=== PATIENT | male | born 1970 | race Caucasian/White ===

== ENCOUNTER → 2016-04-22 | Outpatient (CLI) | payer OTHER ==
[~2016-04-22] MED LIST: CLONIDINE0.1 MG PO; COLACE100 MG PO; HYDR12.5C PO; HYDRODIURIL25 MG PO; LISINOPRIL-HYDR1 TA1 PO; LISINOPRIL20 MG PO; MAGNESIUM400 M1 PO; METOPROLOL50 MG PO; MIRALAX17 GM PO; OMEPRAZOLE D/R20 MG PO; OXYCODONE HCL5 MG PO; OXYCODONE5 M1 PO; PLACEBO #001 EACH PO; TOPROL XL25 MG PO; TYLENOL325 M2 PO; [UNRECOGNIZED DRUG - OTHER] PO
[2016-04-22 12:04] LABS: HEMATOCRIT 34.2 % (42.0-52.0); HEMOGLOBIN 11.4 g/dl (14.0-18.0); MEAN CELL VOLUME 85.9 fl (80.0-94.0); MEAN CORPUSCULAR HGB 28.6 pg (27.0-31.0); MEAN CORPUSCULAR HGB CONC 33.3 g/dl (33.0-37.0); MEAN PLATELET VOLUME 10.3 fl (9.6-12.3); RED BLOOD COUNT 3.98 10*6/uL (4.50-5.90); RED CELL DISTRI WIDTH 13.2 % (0-14.5); WHITE BLOOD COUNT 8.8 10*3/uL (4.8-10.8)
[2016-04-22 12:30] LABS: CHOLESTEROL 215 mg/dL (<200); HDL CHOLESTEROL 41 mg/dl (40-60); LDL CHOLESTEROL 113 mg/dL (9-159); TRIGLYCERIDES 303 mg/dl (<150); VLDL CHOLESTEROL 61 mg/dL (6-40)
[2016-04-22 12:31] LABS: ALBUMIN 3.4 gm/dl (3.1-4.5); ALKALINE PHOSPHATASE 90 U/L (45-117); BILIRUBIN, TOTAL 0.2 mg/dl (0.2-1.0); BUN 19 mg/dl (7-24); CARBON DIOXIDE 26 mmol/L (21-32); CHLORIDE 104 mmol/L (98-107); EST GLOM FILT AFRICAN AMERICAN > 60 ml/min; GLUCOSE 105 mg/dL (65-99); SGOT/AST 18 IU/L (3-35); SGPT/ALT 31 U/L (12-78); SODIUM 139 mmol/L (136-145); TOTAL PROTEIN 7.4 gm/dL (6.4-8.2)
== END | disposition home or self-care (01) ==
LOC: LAB 11:40
PROVIDERS: Family Medicine
DX: I10 Essential (primary) hypertension (principal); E78.00 Pure hypercholesterolemia, unspecified; E55.9 Vitamin D deficiency, unspecified; R10.9 Unspecified abdominal pain; K21.9 Gastro-esophageal reflux disease without esophagitis

== ENCOUNTER 2016-05-04 12:25 | Emergency (ER) | payer OTHER ==
[~2016-05-04] VITALS: Ht 175.2 cm; Wt 104.3 kg
[2016-05-04 13:08] LABS: BASO % 0.5 % (0.0-1.0); EOS # 0.2 10*3/uL (0.0-0.4); EOS % 2.7 % (1.0-4.0); HEMATOCRIT 37.2 % (42.0-52.0); HEMOGLOBIN 12.3 g/dl (14.0-18.0); LYMPH # 2.6 10*3/uL (1.3-4.4); LYMPH % 30.5 % (27.0-41.0); MEAN CELL VOLUME 85.9 fl (80.0-94.0); MEAN CORPUSCULAR HGB 28.4 pg (27.0-31.0); MEAN CORPUSCULAR HGB CONC 33.1 g/dl (33.0-37.0); MEAN PLATELET VOLUME 10.7 fl (9.6-12.3); MONO # 0.7 10*3/uL (0.1-1.0); NEUT % 57.8 % (47.0-73.0); PLATELET COUNT AUTOMATED 274 10*3/uL (130-400); RED BLOOD COUNT 4.33 10*6/uL (4.50-5.90); WHITE BLOOD COUNT 8.6 10*3/uL (4.8-10.8)
[2016-05-04 13:27] LABS: ALBUMIN 3.6 gm/dl (3.1-4.5); ALKALINE PHOSPHATASE 95 U/L (45-117); BILIRUBIN, TOTAL 0.2 mg/dl (0.2-1.0); BUN 17 mg/dl (7-24); CARBON DIOXIDE 26 mmol/L (21-32); CHLORIDE 103 mmol/L (98-107); EST GLOM FILT AFRICAN AMERICAN > 60 ml/min; GLUCOSE 83 mg/dL (65-99); POTASSIUM 4.3 mmol/L (3.5-5.1); SGOT/AST 21 IU/L (3-35); SGPT/ALT 36 U/L (12-78); SODIUM 138 mmol/L (136-145); TOTAL PROTEIN 7.7 gm/dL (6.4-8.2)
[2016-05-04 16:11] LABS: BILIRUBIN NEGATIVE (NEGATIVE); BLOOD NEGATIVE (NEGATIVE); CLARITY CLEAR (CLEAR); COLOR YELLOW (YELLOW); GLUCOSE NEGATIVE (NEGATIVE); KETONE NEGATIVE (NEGATIVE); LEUKO ESTERASE NEGATIVE (NEGATIVE); NITRITE NEGATIVE (NEGATIVE); PROTEIN NEGATIVE (NEGATIVE); SPECIFIC GRAVITY <= 1.005 (1.005-1.030); UROBILINOGEN 0.2 E.U./dl (0.2-1.0)
[2016-05-04 16:24] LABS: URINE REFLEX COMMENT NO (NO); WBC 0-2 wbc/hpf (0-5)
== END 2016-05-04 16:16 | disposition home or self-care (01) ==
LOC: ED 12:25
PROVIDERS: Emergency Medicine
DX: K43.6 Other and unspecified ventral hernia with obstruction, without gangrene (principal); N18.9 Chronic kidney disease, unspecified; I99.8 Other disorder of circulatory system; I10 Essential (primary) hypertension; F17.200 Nicotine dependence, unspecified, uncomplicated; Z88.8 Allergy status to other drugs, medicaments and biological substances; Z79.899 Other long term (current) drug therapy; Z90.5 Acquired absence of kidney

== ENCOUNTER → 2017-05-07 | Outpatient (CLI) | payer OTHER ==
[2017-05-07 11:22] LABS: HEMATOCRIT 39.4 % (42.0-52.0); HEMOGLOBIN 13.5 g/dl (14.0-18.0); MEAN CELL VOLUME 79.6 fl (80.0-94.0); MEAN CORPUSCULAR HGB 27.3 pg (27.0-31.0); MEAN CORPUSCULAR HGB CONC 34.3 g/dl (33.0-37.0); MEAN PLATELET VOLUME 10.7 fl (9.6-12.3); RED BLOOD COUNT 4.95 10*6/uL (4.50-5.90); RED CELL DISTRI WIDTH 13.2 % (0-14.5); WHITE BLOOD COUNT 9.3 10*3/uL (4.8-10.8)
[2017-05-07 11:51] LABS: ALBUMIN 3.7 gm/dl (3.1-4.5); CREATININE 2.02 mg/dL (0.70-1.30); POTASSIUM 3.9 mmol/L (3.5-5.1)
== END | disposition home or self-care (01) ==
LOC: LAB 10:39
PROVIDERS: Family Medicine
DX: Z12.5 Encounter for screening for malignant neoplasm of prostate (principal); I10 Essential (primary) hypertension; E78.00 Pure hypercholesterolemia, unspecified; E55.9 Vitamin D deficiency, unspecified

== ENCOUNTER → 2017-07-04 | Outpatient (CLI) | payer OTHER ==
[2017-07-04 09:38] LABS: BASO % 0.3 % (0.0-1.0); EOS # 0.2 10*3/uL (0.0-0.4); EOS % 2.2 % (1.0-4.0); HEMATOCRIT 41.3 % (42.0-52.0); HEMOGLOBIN 13.5 g/dl (14.0-18.0); LYMPH # 2.3 10*3/uL (1.3-4.4); LYMPH % 26.6 % (27.0-41.0); MEAN CELL VOLUME 81.8 fl (80.0-94.0); MEAN CORPUSCULAR HGB 26.7 pg (27.0-31.0); MEAN CORPUSCULAR HGB CONC 32.7 g/dl (33.0-37.0); MEAN PLATELET VOLUME 10.1 fl (9.6-12.3); MONO # 0.7 10*3/uL (0.1-1.0); MONO % 7.7 % (3.0-9.0); NEUT # 5.5 10*3/uL (2.3-7.9); NEUT % 62.6 % (47.0-73.0); PLATELET COUNT AUTOMATED 266 10*3/uL (130-400); RED BLOOD COUNT 5.05 10*6/uL (4.50-5.90); RED CELL DISTRI WIDTH 13.7 % (0-14.5); WHITE BLOOD COUNT 8.7 10*3/uL (4.8-10.8)
[2017-07-04 10:00] LABS: ALBUMIN 3.7 gm/dl (3.1-4.5); CREATININE 1.58 mg/dL (0.70-1.30); FREE T4 0.63 ng/dl (0.76-1.46); POTASSIUM 3.8 mmol/L (3.5-5.1); TOTAL PROTEIN 7.5 gm/dL (6.4-8.2)
[2017-07-04 10:05] LABS: THYROID STIM HORMONE (HS) 1.71 uIU/ml (0.358-4.75)
== END | disposition home or self-care (01) ==
LOC: LAB 08:52
PROVIDERS: Family Medicine
DX: J44.9 Chronic obstructive pulmonary disease, unspecified (principal); E55.9 Vitamin D deficiency, unspecified; I10 Essential (primary) hypertension

== ENCOUNTER 2017-09-15 15:42 | Inpatient (IN) | payer OTHER ==
[~2017-09-15] VITALS: Ht 175.2 cm; Wt 125.4 kg
--- NOTE | ~2017-09-15 | PROC NOTE ---
[place], [place] PROCEDURE NOTE NAME: TITI ROMAN UNIT #: [id number] ROOM: 524 DOCTOR: UTE PAZ MD,JOVANNY BIRTHDATE: [birth year] DOS: 09/21/2017 BRONCHOSCOPY NOTE PREOPERATIVE DIAGNOSIS: Severe nonresolving cough with suspected mucous impaction, major airway. POSTOPERATIVE DIAGNOSES: Severe nonresolving cough with suspected mucous impaction, major airway. PROCEDURE DESCRIPTION: Informed consent obtained for the patient. The patient brought to the OR and placed in supine position. Conscious sedation administered by the Anesthesia Department. After achieving proper sedation, airway introduced into the mouth. The bronchoscope advanced to the airway into laryngeal area. Epiglottis and vocal cord seen, which was moving symmetrically with movements. Bronchoscope advanced to vocal cord. Tracheal lumen shows moderate thick mucus secretion suctioned out to the bertha level, and appeared to be clear mucus. Bertha noted sharp. Right upper, right middle, right lower, left upper, lingular lobe bronchi all examined and moderate amount of mucus impaction noted mainly in the lower lobe of endobronchial tree subsegment, which were clear with help of normal saline wash, sent for culture. Bronchial washing taken out of the endobronchial subsegments as well. Postoperative finding will be discussed with the patient once the patient recovers the effects of acute sedation. JOVANNY UNGER MD CM:PROCNOTE:PROCEDURE NOTE [id number] JOVANNY PAZ MD
--- NOTE | ~2017-09-15 | EKG ---
[place], [place] ELECTROCARDIOGRAM REPORT NAME: TITI ROMAN UNIT #: [id number] ROOM: 524 DOCTOR: UTE PAZ MD,JOVANNY BIRTHDATE: [birth year] DOS: 09/20/2017 TIME: 9:52 a.m. EKG shows normal sinus rhythm. Heart rate 80 beats per minute. Poor R-wave progression of the patient suggested possibility of anterior myocardial wall infarction for the patient could be old. JOVANNY UNGER MD CM:EKGRPT:ELECTROCARDIOGRAM REPORT [id number] JOVANNY PAZ MD
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
--- NOTE | ~2017-09-15 | PR ---
[place], [place] PROGRESS NOTE NAME: TITI ROMAN UNIT #: [id number] ROOM: 524 DOCTOR: JOVANNY BENNETT MD BIRTHDATE: [birth year] DOS: 09/21/2017 SUBJECTIVE: The patient was noted n.p.o. past midnight for bronchoscopy, still noted moderate severe nonproductive cough and chest congestion. Denies symptoms of coughing. Denies symptoms of rather wheezing or chest pain. Denies symptoms of acute shortness of breath at rest. Denies symptoms of postnasal drainage or headache. Denies symptoms of nausea, vomiting, diarrhea, palpitations. Denies any dysuria, suprapubic pain. Remaining systems were reviewed, they were noted all negative. OBJECTIVE: VITAL SIGNS: For the patient which were recorded showed the temperature noted normal, respiratory rate 20, heart rate 77, blood pressure of 142/92-140/84. Pulse oxygen saturation on room air was 95% saturation. HEENT: Moderate obesity. NECK: Supple. CARDIOVASCULAR: S1, S2 audible. LUNGS: Noted without any wheezing or crackles at the present time. Breaths are noted mild to moderate decreased bilaterally. ABDOMEN: Soft, obese, nontender. EXTREMITIES: The patient noted without any acute edema. LABORATORY DATA: ___ level in the last several hours both noted as normal. No other labs were done. These labs were taken on 09/16/2017. IMPRESSION: 1. The patient has been noted with ongoing acute severe bronchitis at this time with history of nicotine dependence with suspected mucous impaction of major airways here for bronchoscopy. 2. Moderate obesity. 3. Essential hypertension. PLAN OF MANAGEMENT: Proceed with bronchoscopy as planned. Continuation of bronchodilators as previously using the flutter valve and the corticosteroids. Further change in the treatment will be made based on progression of the illness and after bronchoscopy as necessary. [place], [place] PROGRESS NOTE NAME: TITI ROMAN Roseanne UNIT #: [id number] ROOM: 524 DOCTOR: JOVANNY BENNETT MD BIRTHDATE: [birth year] JOVANNY UNGER MD CM:PNTRANS [id number] JOVANNY PAZ MD 09/21/17 1312 interface
--- NOTE | ~2017-09-15 | PR ---
[place], [place] PROGRESS NOTE [id number] UN[facility] #: [id number] ROOM: 524 DOCTOR: UTE PAZ MD,JOVANNY BIRTHDATE: [birth year] DOS: 09/22/2017 SUBJECTIVE: The patient has been noted comfortable at this time without any acute distress. He has not been noted any symptoms of chest pain or hemoptysis. Coughing has been noted markedly decreased after the bronchoscopy yesterday. There was no wheezing reported by the patient. OBJECTIVE: VITAL SIGNS: Normal temperature, respiratory rate 18, ____, blood pressure 129/84. Pulse oxygen saturation of the patient room air 93% saturation. HEENT: Examination shows head was atraumatic. Eye nonicterus. NECK: Supple. CARDIOVASCULAR: S1, S2 audible. LUNGS: Clear to auscultation bilaterally. ABDOMEN: Soft, nontender. EXTREMITIES: No acute edema. LABORATORY DATA: Culture of the sputum for the patient, the patient was noted normal kendra. The Gram stain of the patient, moderate white blood cells, moderate gram-positive cocci in pairs and clusters. Culture ____ normal kendra. IMPRESSION: The patient has been noted currently stable. The patient at this time with improvement in symptoms of coughing, tracheobronchitis with mucous impaction. PLAN OF TREATMENT: No changes in the plan of care, patient at this time. Continue the patient's current plan of care and therapy. Usual care, other supportive plan of management and treatments. JOVANNY UNGER MD CM:PNTRANS [id number] JOVANNY PAZ MD 09/22/17 1120 interface
[2017-09-15 15:43] VITALS: BP 200/132
[2017-09-15 16:05] VITALS: BP 198/100
[2017-09-15 16:06] LABS: BASO % 0.3 % (0.0-1.0); EOS # 0.2 10*3/uL (0.0-0.4); EOS % 2.3 % (1.0-4.0); HEMATOCRIT 47.5 % (42.0-52.0); LYMPH # 2.8 10*3/uL (1.3-4.4); LYMPH % 27.6 % (27.0-41.0); MEAN CELL VOLUME 81.5 fl (80.0-94.0); MEAN CORPUSCULAR HGB 27.4 pg (27.0-31.0); MEAN CORPUSCULAR HGB CONC 33.7 g/dl (33.0-37.0); MEAN PLATELET VOLUME 10.2 fl (9.6-12.3); MONO # 0.7 10*3/uL (0.1-1.0); MONO % 6.5 % (3.0-9.0); NEUT # 6.3 10*3/uL (2.3-7.9); PLATELET COUNT AUTOMATED 275 10*3/uL (130-400); RED BLOOD COUNT 5.83 10*6/uL (4.50-5.90); RED CELL DISTRI WIDTH 13.9 % (0-14.5)
[2017-09-15 16:16] LABS: ACT PARTIAL THROMBO TIME 26.7 SECONDS (20.8-31.5)
[2017-09-15 16:22] LABS: ALBUMIN 3.9 gm/dl (3.1-4.5); ALKALINE PHOSPHATASE 89 U/L (45-117); BUN 14 mg/dl (7-24); CHLORIDE 104 mmol/L (98-107); CREATININE 1.43 mg/dL (0.70-1.30); LIPASE 204 U/L (73-393); POTASSIUM 3.7 mmol/L (3.5-5.1); SGOT/AST 17 IU/L (3-35); SGPT/ALT 22 U/L (12-78); SODIUM 140 mmol/L (136-145); TOTAL PROTEIN 8.3 gm/dL (6.4-8.2)
[2017-09-15 16:23] LABS: TROPONIN I < 0.015 ng/ml (<0.045)
[2017-09-15 17:17] VITALS: BP 166/106
[2017-09-15 18:06] VITALS: BP 176/116
[2017-09-15] MEDS ORDERED: VALIUM5 MG PO (18:06)
[2017-09-15] MEDS ORDERED: Meclizine25 MG PO (18:14)
[2017-09-15] MEDS ORDERED: ANAFRANIL50 M1 PO (18:14)
[2017-09-15] MEDS ORDERED: PROZAC40 M1 PO (18:15)
[2017-09-15] MEDS ORDERED: ZYPREXA20 M1 PO (18:15)
[2017-09-15] MEDS ORDERED: VISTARIL25 MG PO (18:15)
[2017-09-15] MEDS ORDERED: VITAMIN D5000 UNIT PO (18:16)
[2017-09-15] MEDS ORDERED: CLARITIN10 MG PO (18:16)
[2017-09-15 20:00] VITALS: BP 169/112
[2017-09-16] VITALS: BP 148/90
[2017-09-16 06:36] LABS: BASO % 0.3 % (0.0-1.0); EOS # 0.3 10*3/uL (0.0-0.4); EOS % 2.4 % (1.0-4.0); HEMATOCRIT 44.3 % (42.0-52.0); HEMOGLOBIN 14.6 g/dl (14.0-18.0); LYMPH # 2.7 10*3/uL (1.3-4.4); LYMPH % 25.5 % (27.0-41.0); MEAN CELL VOLUME 81.6 fl (80.0-94.0); MEAN CORPUSCULAR HGB 26.9 pg (27.0-31.0); MONO # 0.9 10*3/uL (0.1-1.0); NEUT # 6.7 10*3/uL (2.3-7.9); NEUT % 63.4 % (47.0-73.0); PLATELET COUNT AUTOMATED 243 10*3/uL (130-400); RED BLOOD COUNT 5.43 10*6/uL (4.50-5.90); RED CELL DISTRI WIDTH 13.8 % (0-14.5); WHITE BLOOD COUNT 10.6 10*3/uL (4.8-10.8)
[2017-09-16 06:42] LABS: ACT PARTIAL THROMBO TIME 27.5 SECONDS (20.8-31.5)
[2017-09-16 06:58] LABS: ALBUMIN 3.5 gm/dl (3.1-4.5); BUN 15 mg/dl (7-24); CHLORIDE 104 mmol/L (98-107); POTASSIUM 3.9 mmol/L (3.5-5.1); SODIUM 138 mmol/L (136-145)
[2017-09-16 07:09] LABS: ALKALINE PHOSPHATASE 80 U/L (45-117); CHOLESTEROL 204 mg/dL (<200); CREATININE 1.32 mg/dL (0.70-1.30); HDL CHOLESTEROL 37 mg/dl (40-60); LDL CHOLESTEROL 130 mg/dL (9-159); PHOSPHOROUS 3.6 mg/dL (2.5-4.9); SGOT/AST 15 IU/L (3-35); SGPT/ALT 20 U/L (12-78); TOTAL PROTEIN 7.2 gm/dL (6.4-8.2); TRIGLYCERIDES 186 mg/dl (<150); VLDL CHOLESTEROL 37 mg/dL (6-40)
[2017-09-16 07:29] LABS: VITAMIN D, 25-HYDROXY 25.5 ng/mL (30-100)
[2017-09-16 08:00] VITALS: BP 137/97
[2017-09-16 12:00] VITALS: BP 140/84
[2017-09-16 16:00] VITALS: BP 138/91
[2017-09-16 20:00] VITALS: BP 125/85
[2017-09-17] VITALS: BP 116/71
[2017-09-17 06:41] LABS: ALBUMIN 3.5 gm/dl (3.1-4.5); BUN 20 mg/dl (7-24); CHLORIDE 104 mmol/L (98-107); CREATININE 1.39 mg/dL (0.70-1.30); PHOSPHOROUS 3.4 mg/dL (2.5-4.9); POTASSIUM 4.1 mmol/L (3.5-5.1); SODIUM 139 mmol/L (136-145)
[2017-09-17 08:00] VITALS: BP 125/87
[2017-09-17 11:58] LABS: BILIRUBIN NEGATIVE (NEGATIVE); BLOOD NEGATIVE (NEGATIVE); CLARITY CLEAR (CLEAR); COLOR YELLOW (YELLOW); GLUCOSE NEGATIVE (NEGATIVE); KETONE NEGATIVE (NEGATIVE); LEUKO ESTERASE NEGATIVE (NEGATIVE); NITRITE NEGATIVE (NEGATIVE); PH 5.5 (5.0-9.0); SPECIFIC GRAVITY <= 1.005 (1.005-1.030); UROBILINOGEN 0.2 E.U./dl (0.2-1.0)
[2017-09-17 12:00] VITALS: BP 119/82
[2017-09-17 12:22] LABS: EPITHELIAL CELLS 0-2; WBC 0-2 wbc/hpf (0-5)
[2017-09-17 16:00] VITALS: BP 136/75
[2017-09-17 20:00] VITALS: BP 116/74
[2017-09-18] VITALS: BP 127/78
[2017-09-18 06:38] LABS: BASO % 0.1 % (0.0-1.0); HEMATOCRIT 44.7 % (42.0-52.0); HEMOGLOBIN 14.6 g/dl (14.0-18.0); LYMPH # 1.3 10*3/uL (1.3-4.4); LYMPH % 7.8 % (27.0-41.0); MEAN CELL VOLUME 83.4 fl (80.0-94.0); MEAN CORPUSCULAR HGB 27.2 pg (27.0-31.0); MEAN CORPUSCULAR HGB CONC 32.7 g/dl (33.0-37.0); MEAN PLATELET VOLUME 10.7 fl (9.6-12.3); MONO # 0.2 10*3/uL (0.1-1.0); MONO % 1.5 % (3.0-9.0); NEUT # 14.6 10*3/uL (2.3-7.9); PLATELET COUNT AUTOMATED 265 10*3/uL (130-400); RED BLOOD COUNT 5.36 10*6/uL (4.50-5.90); RED CELL DISTRI WIDTH 14.3 % (0-14.5); WHITE BLOOD COUNT 16.2 10*3/uL (4.8-10.8)
[2017-09-18 07:06] LABS: CREATININE 1.6 mg/dL (0.70-1.30)
[2017-09-18 08:00] VITALS: BP 124/79
[2017-09-18 12:00] VITALS: BP 122/77
[2017-09-18 16:00] VITALS: BP 129/83
[2017-09-18 20:00] VITALS: BP 126/73
[2017-09-19 00:16] VITALS: BP 138/83
[2017-09-19 08:00] VITALS: BP 128/80
[2017-09-19 12:00] VITALS: BP 151/87
[2017-09-19 16:00] VITALS: BP 133/82
[2017-09-19 20:00] VITALS: BP 128/77
[2017-09-20] VITALS: BP 132/89
[2017-09-20 07:26] LABS: BASO % 0.1 % (0.0-1.0); HEMATOCRIT 43.3 % (42.0-52.0); LYMPH # 1.1 10*3/uL (1.3-4.4); LYMPH % 7.3 % (27.0-41.0); MEAN CELL VOLUME 83.6 fl (80.0-94.0); MEAN CORPUSCULAR HGB CONC 32.3 g/dl (33.0-37.0); MEAN PLATELET VOLUME 10.9 fl (9.6-12.3); MONO # 0.6 10*3/uL (0.1-1.0); MONO % 3.7 % (3.0-9.0); NEUT # 13.6 10*3/uL (2.3-7.9); NEUT % 88.2 % (47.0-73.0); PLATELET COUNT AUTOMATED 264 10*3/uL (130-400); RED BLOOD COUNT 5.18 10*6/uL (4.50-5.90); RED CELL DISTRI WIDTH 14.6 % (0-14.5); WHITE BLOOD COUNT 15.4 10*3/uL (4.8-10.8)
[2017-09-20 07:54] LABS: BUN 29 mg/dl (7-24); CHLORIDE 102 mmol/L (98-107); CREATININE 1.39 mg/dL (0.70-1.30); POTASSIUM 4.1 mmol/L (3.5-5.1); SODIUM 139 mmol/L (136-145)
[2017-09-20 08:00] VITALS: BP 122/79
[2017-09-20 12:00] VITALS: BP 135/65
[2017-09-20 16:00] VITALS: BP 143/78
[2017-09-20 20:00] VITALS: BP 143/82
[2017-09-21] VITALS (9 sets, daily range): BP systolic 130–169; BP diastolic 79–107
[2017-09-22] VITALS: BP 129/74
[2017-09-22 08:00] VITALS: BP 129/84
[2017-09-22] MEDS ORDERED: LEVAQUIN750 M1 PO (09:16)
[2017-09-22] MEDS ORDERED: ATORVASTATIN CA20 M1 PO (09:16)
[2017-09-22] MEDS ORDERED: PREDNISONE10 MG PO (09:16)
[2017-09-22 12:00] VITALS: BP 122/76
[2017-09-22 15:08] LABS: ACID FAST SPEC PROCESSING Concentration (.)
[2017-09-23 19:06] LABS: METANEPHRINE, PLASMA <10 pg/mL (0-62); NORMETANEPHRINE, PLASMA 11 pg/mL (0-145)
[2017-11-02 12:06] LABS: ACID FAST CULTURE Negative (.)
== END 2017-09-22 13:51 | disposition home or self-care (01) | DRG 190 ==
LOC: ED 15:42 → 5E 17:44 → EDHOLD 17:44 → 5E 17:51
PROVIDERS: Family Medicine; Internal Medicine; Internal Medicine Critical Care Medicine; Internal Medicine Nephrology; Nurse Practitioner Family
PROC: 0BC98ZZ Extirpation of Matter from Lingula Bronchus, Via Natural or Artificial Opening Endoscopic (ICD-10-PCS; principal; 2017-09-21)
PROC: 0BC48ZZ Extirpation of Matter from Right Upper Lobe Bronchus, Via Natural or Artificial Opening Endoscopic (ICD-10-PCS; 2017-09-21)
PROC: 0BC88ZZ Extirpation of Matter from Left Upper Lobe Bronchus, Via Natural or Artificial Opening Endoscopic (ICD-10-PCS; 2017-09-21)
PROC: 0BC58ZZ Extirpation of Matter from Right Middle Lobe Bronchus, Via Natural or Artificial Opening Endoscopic (ICD-10-PCS; 2017-09-21)
PROC: 0BC38ZZ Extirpation of Matter from Right Main Bronchus, Via Natural or Artificial Opening Endoscopic (ICD-10-PCS; 2017-09-21)
PROC: 0BC78ZZ Extirpation of Matter from Left Main Bronchus, Via Natural or Artificial Opening Endoscopic (ICD-10-PCS; 2017-09-21)
PROC: 0BC68ZZ Extirpation of Matter from Right Lower Lobe Bronchus, Via Natural or Artificial Opening Endoscopic (ICD-10-PCS; 2017-09-21)
PROC: 0BCB8ZZ Extirpation of Matter from Left Lower Lobe Bronchus, Via Natural or Artificial Opening Endoscopic (ICD-10-PCS; 2017-09-21)
PROC: 0BC18ZZ Extirpation of Matter from Trachea, Via Natural or Artificial Opening Endoscopic (ICD-10-PCS; 2017-09-21)
DX: J44.1 Chronic obstructive pulmonary disease with (acute) exacerbation (principal); J18.9 Pneumonia, unspecified organism; T17.590A Other foreign object in bronchus causing asphyxiation, initial encounter; T17.490A Other foreign object in trachea causing asphyxiation, initial encounter; I13.0 Hypertensive heart and chronic kidney disease with heart failure and stage 1 through stage 4 chronic kidney disease, or unspecified chronic kidney disease; R65.10 Systemic inflammatory response syndrome (SIRS) of non-infectious origin without acute organ dysfunction; I50.32 Chronic diastolic (congestive) heart failure; E66.01 Morbid (severe) obesity due to excess calories; F33.9 Major depressive disorder, recurrent, unspecified; I16.1 Hypertensive emergency; J44.0 Chronic obstructive pulmonary disease with (acute) lower respiratory infection; J30.2 Other seasonal allergic rhinitis; N18.3 Chronic kidney disease, stage 3 (moderate); E55.9 Vitamin D deficiency, unspecified; E78.5 Hyperlipidemia, unspecified; K43.9 Ventral hernia without obstruction or gangrene; F43.10 Post-traumatic stress disorder, unspecified; F41.1 Generalized anxiety disorder; D72.810 Lymphocytopenia; F17.210 Nicotine dependence, cigarettes, uncomplicated; J20.9 Acute bronchitis, unspecified; X58.XXXA Exposure to other specified factors, initial encounter; Y93.89 Activity, other specified; Z90.5 Acquired absence of kidney; Z88.8 Allergy status to other drugs, medicaments and biological substances; Z79.899 Other long term (current) drug therapy; Y92.89 Other specified places as the place of occurrence of the external cause; Y99.8 Other external cause status; Z68.39 Body mass index [BMI] 39.0-39.9, adult

== ENCOUNTER 2018-05-23 17:12 | Inpatient (IN) | payer OTHER ==
[~2018-05-23] VITALS: Ht 175.3 cm; Wt 134.5 kg
--- NOTE | ~2018-05-23 | EKG ---
[place], [place] ELECTROCARDIOGRAM REPORT NAME: TITI ROMAN UNIT #: [id number] ROOM: 532 DOCTOR: MYRANDA DRAFT REPORT BIRTHDATE: [birth year] [facility] Test Date: 2018-05-23 Test Time: 23:35:57 Pat Name: TITI ROMAN Department: Room: 532 1 Gender: M Air Shovel Operator: Nini Bueno : 1970 Requested By: RAMIRO WILKERSON Order Number: [id number] Reading MD: Titi Miller MD Measurements Intervals [place] Rate: 97 P: 57 NM: 103 QRS: -73 QRSD: 101 T: 70 QT: 458 QTc: 582 Interpretive Statements Sinus rhythm Short NM interval Probable left atrial enlargement Left anterior fascicular block Abnormal R-wave progression, late transition Prolonged QT interval or TU fusion Compared to ECG 05/23/2018 21:39:53 No significant change Electronically Signed On 05-24-2018 17:27:14 PST by Titi Miller MD CM:EKGRPT:ELECTROCARDIOGRAM REPORT [id number] RAMIRO COX DRAFT REPORT RAMIRO WILKERSON DO
--- NOTE | ~2018-05-23 | EKG ---
[place], [place] ELECTROCARDIOGRAM REPORT NAME: DANIELE ROMAN UNIT #: [id number] ROOM: 532 DOCTOR: MYRANDA DRAFT REPORT BIRTHDATE: [birth year] [facility] Test Date: 2018-05-23 Test Time: 18:16:54 Pat Name: DANIELE ROMAN Department: Room: 532 Gender: M Clerical Manager: : 1970 Requested By: ROBYN VILLEDA Order Number: [id number] Reading MD: Daniele Miller MD Measurements Intervals [place] Rate: 101 P: 59 TX: 140 QRS: -61 QRSD: 98 T: 64 QT: 314 QTc: 407 Interpretive Statements Sinus tachycardia Left atrial enlargement Left anterior fascicular block Abnormal R-wave progression, late transition Compared to ECG 12/08/2017 16:34:26 Sinus rhythm no longer present Electronically Signed On 05-25-2018 9:29:39 PST by Daniele Miller MD CM:EKGRPT:ELECTROCARDIOGRAM REPORT [id number] ROBYN VILLEDA EPIPHANY DRAFT REPORT ROBYN VILLEDA
--- NOTE | ~2018-05-23 | EKG ---
[place], [place] ELECTROCARDIOGRAM REPORT NAME: TITI ROMAN UNIT #: [id number] ROOM: 532 DOCTOR: MYRANDA DRAFT REPORT BIRTHDATE: [birth year] [facility] Test Date: 2018-05-23 Test Time: 21:39:53 Pat Name: TITI ROMAN Department: 5E Room: 532 1 Gender: M Scallop Cutter: Nini Bueno : 1970 Requested By: RAMIRO WILKERSON Order Number: [id number] Reading MD: Titi Miller MD Measurements Intervals [place] Rate: 95 P: 68 TX: 144 QRS: -61 QRSD: 89 T: 59 QT: 452 QTc: 569 Interpretive Statements Sinus rhythm Probable left atrial enlargement Left anterior fascicular block Abnormal R-wave progression, late transition ST elev, probable normal early repol pattern Prolonged QT interval Compared to ECG 12/08/2017 16:34:26 ST (T wave) deviation now present Prolonged QT interval now present Electronically Signed On 05-23-2018 19:36:50 PST by Titi Miller MD CM:EKGRPT:ELECTROCARDIOGRAM REPORT [id number] RAMIRO COX DRAFT REPORT RAMIRO WILKERSON DO
[~2018-05-23 17:12] MED LIST changes: +ANAFRANIL50 M1 PO; +ATORVASTATIN CA20 M1 PO; +CLARITIN10 MG PO; +LEVAQUIN750 M1 PO; +Meclizine25 MG PO; +PREDNISONE10 MG PO; +PROZAC40 M1 PO; +VALIUM5 MG PO; +VISTARIL25 MG PO; +VITAMIN D5000 UNIT PO; +ZYPREXA20 M1 PO
[2018-05-23 17:42] LABS: BASO % 0.3 % (0.0-1.0); EOS # 0.2 10*3/uL (0.0-0.4); EOS % 1.4 % (1.0-4.0); HEMATOCRIT 46.9 % (42.0-52.0); HEMOGLOBIN 16.4 g/dl (14.0-18.0); LYMPH # 2.8 10*3/uL (1.3-4.4); LYMPH % 25.1 % (27.0-41.0); MEAN CELL VOLUME 77.5 fl (80.0-94.0); MEAN CORPUSCULAR HGB 27.1 pg (27.0-31.0); MEAN PLATELET VOLUME 9.9 fl (9.6-12.3); MONO # 0.7 10*3/uL (0.1-1.0); MONO % 6.5 % (3.0-9.0); NEUT # 7.3 10*3/uL (2.3-7.9); NEUT % 66.2 % (47.0-73.0); PLATELET COUNT AUTOMATED 309 10*3/uL (130-400); RED BLOOD COUNT 6.05 10*6/uL (4.50-5.90); RED CELL DISTRI WIDTH 12.9 % (0-14.5)
[2018-05-23 17:59] LABS: ALBUMIN 3.8 gm/dl (3.1-4.5); CREATININE 1.53 mg/dL (0.70-1.30); POTASSIUM 3.6 mmol/L (3.5-5.1)
[2018-05-23 18:06] LABS: TROPONIN I 0.046 ng/ml (<0.045)
[2018-05-23 21:20] VITALS: BP 158/98
[2018-05-23] MEDS ORDERED: ZYPREXA20 M1 PO (21:53)
[2018-05-23] MEDS ORDERED: 'CLONIDINE0.1 MG PO (21:54)
[2018-05-23] MEDS ORDERED: FLUOXETINE HCL40 MG PO (21:58)
[2018-05-24] VITALS: BP 158/98
[2018-05-24 04:00] VITALS: BP 131/84
[2018-05-24 06:28] LABS: BASO % 0.3 % (0.0-1.0); EOS # 0.2 10*3/uL (0.0-0.4); EOS % 2.2 % (1.0-4.0); HEMATOCRIT 42.6 % (42.0-52.0); HEMOGLOBIN 14.9 g/dl (14.0-18.0); LYMPH # 2.8 10*3/uL (1.3-4.4); LYMPH % 26.6 % (27.0-41.0); MEAN CELL VOLUME 78.3 fl (80.0-94.0); MEAN CORPUSCULAR HGB 27.4 pg (27.0-31.0); MEAN PLATELET VOLUME 10.3 fl (9.6-12.3); MONO # 0.9 10*3/uL (0.1-1.0); MONO % 8.2 % (3.0-9.0); NEUT # 6.4 10*3/uL (2.3-7.9); NEUT % 62.1 % (47.0-73.0); PLATELET COUNT AUTOMATED 272 10*3/uL (130-400); RED BLOOD COUNT 5.44 10*6/uL (4.50-5.90); RED CELL DISTRI WIDTH 13.1 % (0-14.5); WHITE BLOOD COUNT 10.4 10*3/uL (4.8-10.8)
[2018-05-24 06:43] LABS: ALBUMIN 3.1 gm/dl (3.1-4.5); BUN 20 mg/dl (7-24); CHLORIDE 102 mmol/L (98-107); CHOLESTEROL 177 mg/dL (<200); CREATININE 1.24 mg/dL (0.70-1.30); FREE T4 0.95 ng/dl (0.76-1.46); PHOSPHOROUS 2.9 mg/dL (2.5-4.9); POTASSIUM 3.4 mmol/L (3.5-5.1); SGOT/AST 33 IU/L (3-35); SGPT/ALT 60 U/L (12-78); SODIUM 138 mmol/L (136-145); TOTAL PROTEIN 6.7 gm/dL (6.4-8.2); TRIGLYCERIDES 573 mg/dl (<150)
[2018-05-24 06:48] LABS: ALKALINE PHOSPHATASE 130 U/L (45-117); HDL CHOLESTEROL 27 mg/dl (40-60)
[2018-05-24 08:00] VITALS: BP 141/84
[2018-05-24 12:00] VITALS: BP 101/58
[2018-05-24 14:03] LABS: BILIRUBIN NEGATIVE (NEGATIVE); BLOOD NEGATIVE (NEGATIVE); CLARITY CLEAR (CLEAR); COLOR YELLOW (YELLOW); GLUCOSE 3+ (NEGATIVE); KETONE NEGATIVE (NEGATIVE); LEUKO ESTERASE NEGATIVE (NEGATIVE); NITRITE NEGATIVE (NEGATIVE); SPECIFIC GRAVITY <= 1.005 (1.005-1.030); UROBILINOGEN 0.2 E.U./dl (0.2-1.0)
[2018-05-24 14:20] LABS: EPITHELIAL CELLS 0-2; WBC 0-2 wbc/hpf (0-5)
[2018-05-24 14:21] LABS: BACTERIA TRACE
[2018-05-24 16:00] VITALS: BP 156/95
[2018-05-24 20:00] VITALS: BP 147/86
[2018-05-25] VITALS: BP 134/92
[2018-05-25 07:21] LABS: ALBUMIN 3.1 gm/dl (3.1-4.5); ALKALINE PHOSPHATASE 129 U/L (45-117); BUN 17 mg/dl (7-24); CHLORIDE 103 mmol/L (98-107); CREATININE 1.11 mg/dL (0.70-1.30); POTASSIUM 3.4 mmol/L (3.5-5.1); SGOT/AST 49 IU/L (3-35); SGPT/ALT 64 U/L (12-78); SODIUM 135 mmol/L (136-145); TOTAL PROTEIN 6.6 gm/dL (6.4-8.2)
[2018-05-25 08:00] VITALS: BP 136/82
[2018-05-25 12:00] VITALS: BP 146/86
[2018-05-25 16:00] VITALS: BP 138/88
[2018-05-25] MEDS ORDERED: LANTUS SOL100 UNIT/1 SC (17:44)
[2018-05-25] MEDS ORDERED: ZITHROMAX250 MG PO (17:44)
[2018-05-25] MEDS ORDERED: LIPITOR20 MG PO (17:44)
[2018-05-25] MEDS ORDERED: TRAD5TAB1 PO (17:44)
[2018-08-05] MEDS ORDERED: ADMELOG100 UNIT/1 SQ (22:02)
[2018-08-05] MEDS ORDERED: BASAG SOL SQ (22:03)
[2018-08-09] MEDS ORDERED: DOXYCYCLINE100 M3 PO (10:20)
[2018-08-09] MEDS ORDERED: PREDNISONE10 MG PO (10:20)
== END 2018-05-25 18:25 | disposition home or self-care (01) | DRG 640 ==
LOC: ED 17:12 → 5E 19:29 → EDHOLD 19:29 → 5E 20:12
PROVIDERS: Family Medicine; Nurse Practitioner Family; Student in an Organized Health Care Education/Training Program; ADMIT Internal Medicine
DX: R73.9 Hyperglycemia, unspecified (principal); N17.0 Acute kidney failure with tubular necrosis; I13.0 Hypertensive heart and chronic kidney disease with heart failure and stage 1 through stage 4 chronic kidney disease, or unspecified chronic kidney disease; I50.32 Chronic diastolic (congestive) heart failure; E87.1 Hypo-osmolality and hyponatremia; K46.0 Unspecified abdominal hernia with obstruction, without gangrene; N18.3 Chronic kidney disease, stage 3 (moderate); F32.9 Major depressive disorder, single episode, unspecified; E66.01 Morbid (severe) obesity due to excess calories; E87.8 Other disorders of electrolyte and fluid balance, not elsewhere classified; R74.8 Abnormal levels of other serum enzymes; F41.1 Generalized anxiety disorder; E78.5 Hyperlipidemia, unspecified; F43.10 Post-traumatic stress disorder, unspecified; F17.210 Nicotine dependence, cigarettes, uncomplicated; R74.0 Nonspecific elevation of levels of transaminase and lactic acid dehydrogenase [LDH]; E55.9 Vitamin D deficiency, unspecified; E87.6 Hypokalemia; J20.9 Acute bronchitis, unspecified; Z71.6 Tobacco abuse counseling; Z88.8 Allergy status to other drugs, medicaments and biological substances; Z79.899 Other long term (current) drug therapy; Z90.5 Acquired absence of kidney

== ENCOUNTER → 2018-09-29 | Outpatient (CLI) | payer OTHER ==
[~2018-09-29] MED LIST changes: +'CLONIDINE0.1 MG PO; +ADMELOG100 UNIT/1 SQ; +BASAG SOL SQ; +DOXYCYCLINE100 M3 PO; +FLUOXETINE HCL40 MG PO; +LANTUS SOL100 UNIT/1 SC; +LIPITOR20 MG PO; +TRAD5TAB1 PO; +ZITHROMAX250 MG PO
== END | disposition home or self-care (01) ==
LOC: CT 09-28 13:00
DX: K43.9 Ventral hernia without obstruction or gangrene (principal); K44.9 Diaphragmatic hernia without obstruction or gangrene; R19.07 Generalized intra-abdominal and pelvic swelling, mass and lump

== ENCOUNTER 2018-12-19 14:23 | Emergency (ER) | payer OTHER ==
[~2018-12-19] VITALS: Ht 175.2 cm; Wt 138.3 kg
--- NOTE | ~2018-12-19 | EKG ---
[place], [place] ELECTROCARDIOGRAM REPORT NAME: TITI ROMAN UNIT #: [id number] ROOM: DOCTOR: EPIPHANY DRAFT REPORT BIRTHDATE: [birth year] [facility] Test Date: 2018-12-19 Test Time: 14:52:28 Pat Name: TITI ROMAN Department: Room: Gender: Network Manager: Christiana Meyers : 1970 Requested By: NEVIN MOYER DNP Order Number: [id number] Reading MD: Tahmina Briones MD Measurements Intervals [place] Rate: 84 P: 47 VT: 157 QRS: -36 QRSD: 105 T: 67 QT: 414 QTc: 490 Interpretive Statements Sinus rhythm Left axis deviation Consider anterior infarct Compared to ECG 08/05/2018 18:44:30 Left-axis deviation now present Myocardial infarct finding still present Electronically Signed On 12-21-2018 8:04:16 PDT by Tahmina Briones MD CM:EKGRPT:ELECTROCARDIOGRAM REPORT [id number] NEVIN MOYER DNP EPIPHANY DRAFT REPORT NEVIN MOYER DNP
[2018-12-19 15:03] LABS: BASO # 0.1 10*3/uL (0.0-0.1); BASO % 0.4 % (0.0-1.0); EOS # 0.3 10*3/uL (0.0-0.4); EOS % 2.4 % (1.0-4.0); HEMATOCRIT 43.9 % (42.0-52.0); HEMOGLOBIN 15.1 g/dl (14.0-18.0); LYMPH % 26.9 % (27.0-41.0); MEAN CELL VOLUME 81.4 fl (80.0-94.0); MEAN CORPUSCULAR HGB CONC 34.4 g/dl (33.0-37.0); MONO # 0.8 10*3/uL (0.1-1.0); MONO % 6.7 % (3.0-9.0); NEUT % 63.2 % (47.0-73.0); PLATELET COUNT AUTOMATED 252 10*3/uL (130-400); RED BLOOD COUNT 5.39 10*6/uL (4.50-5.90); WHITE BLOOD COUNT 11.1 10*3/uL (4.8-10.8)
[2018-12-19 15:13] LABS: ACT PARTIAL THROMBO TIME 30.4 SECONDS (20.0-32.1); INTERNATIONAL NORM RATIO 0.9 (2.0-3.5)
[2018-12-19 15:20] LABS: ALBUMIN 3.8 gm/dl (3.1-4.5); ALKALINE PHOSPHATASE 100 U/L (45-117); BUN 16 mg/dl (7-24); CHLORIDE 101 mmol/L (98-107); CREATININE 1.42 mg/dL (0.70-1.30); LIPASE 276 U/L (73-393); POTASSIUM 3.7 mmol/L (3.5-5.1); SGOT/AST 24 IU/L (3-35); SGPT/ALT 42 U/L (12-78); SODIUM 136 mmol/L (136-145); TOTAL PROTEIN 7.5 gm/dL (6.4-8.2); TROPONIN I 0.027 ng/ml (<0.045)
== END 2018-12-19 15:49 | disposition home or self-care (01) ==
LOC: ED 14:23
PROVIDERS: Nurse Practitioner Family
DX: I10 Essential (primary) hypertension (principal); F17.210 Nicotine dependence, cigarettes, uncomplicated; Z88.8 Allergy status to other drugs, medicaments and biological substances; Z79.899 Other long term (current) drug therapy; Z79.2 Long term (current) use of antibiotics

== ENCOUNTER 2019-01-06 17:03 | Emergency (ER) | payer OTHER ==
[~2019-01-06] VITALS: Ht 175.2 cm; Wt 104.3 kg
[2019-01-06 17:42] LABS: BASO # 0.1 10*3/uL (0.0-0.1); BASO % 0.6 % (0.0-1.0); EOS # 0.2 10*3/uL (0.0-0.4); EOS % 2.3 % (1.0-4.0); HEMATOCRIT 43.5 % (42.0-52.0); HEMOGLOBIN 15.1 g/dl (14.0-18.0); LYMPH # 2.3 10*3/uL (1.3-4.4); LYMPH % 26.1 % (27.0-41.0); MEAN CELL VOLUME 81.2 fl (80.0-94.0); MEAN CORPUSCULAR HGB 28.2 pg (27.0-31.0); MEAN CORPUSCULAR HGB CONC 34.7 g/dl (33.0-37.0); MEAN PLATELET VOLUME 10.1 fl (9.6-12.3); MONO # 0.8 10*3/uL (0.1-1.0); MONO % 8.7 % (3.0-9.0); NEUT # 5.5 10*3/uL (2.3-7.9); NEUT % 61.6 % (47.0-73.0); PLATELET COUNT AUTOMATED 210 10*3/uL (130-400); RED BLOOD COUNT 5.36 10*6/uL (4.50-5.90); RED CELL DISTRI WIDTH 13.2 % (0-14.5); WHITE BLOOD COUNT 8.8 10*3/uL (4.8-10.8)
[2019-01-06 17:58] LABS: ALBUMIN 3.5 gm/dl (3.1-4.5); CREATININE 1.52 mg/dL (0.70-1.30); TOTAL PROTEIN 7.1 gm/dL (6.4-8.2)
[2019-01-06 18:18] LABS: BILIRUBIN NEGATIVE (NEGATIVE); BLOOD NEGATIVE (NEGATIVE); CLARITY CLEAR (CLEAR); COLOR YELLOW (YELLOW); GLUCOSE 3+ (NEGATIVE); KETONE NEGATIVE (NEGATIVE); LEUKO ESTERASE NEGATIVE (NEGATIVE); NITRITE NEGATIVE (NEGATIVE); UROBILINOGEN 0.2 E.U./dl (0.2-1.0)
[2019-01-06 18:23] LABS: BACTERIA 1+; RBC 0-2 rbc/hpf (0-2)
== END 2019-01-06 20:17 | disposition home or self-care (01) ==
LOC: ED 17:03
PROVIDERS: Physician Assistant
DX: E11.65 Type 2 diabetes mellitus with hyperglycemia (principal); F17.210 Nicotine dependence, cigarettes, uncomplicated; Z98.890 Other specified postprocedural states; Z90.89 Acquired absence of other organs; Z79.4 Long term (current) use of insulin; Z79.899 Other long term (current) drug therapy; Z88.8 Allergy status to other drugs, medicaments and biological substances

== ENCOUNTER 2019-02-22 16:57 | Inpatient (IN) | payer MEDICARE ==
[~2019-02-22] VITALS: Ht 175.2 cm; Wt 116.6 kg
--- NOTE | ~2019-02-22 | EKG ---
[place], [place] ELECTROCARDIOGRAM REPORT NAME: TITI ROMAN UNIT #: [id number] ROOM: 504 DOCTOR: MYRANDA DRAFT REPORT BIRTHDATE: [birth year] [facility] Test Date: 2019-02-22 Test Time: 17:37:09 Pat Name: TITI ROMAN Department: ER Room: 504 Gender: M Supervisor Home Restoration Service: EKG.NH : 1970 Requested By: NEVIN MOYER DNP Order Number: [id number] Reading MD: Clint Charlton Measurements Intervals [place] Rate: 90 P: 56 MA: 158 QRS: -72 QRSD: 100 T: 59 QT: 377 QTc: 462 Interpretive Statements Sinus rhythm Probable left atrial enlargement Incomplete RBBB and LAFB Consider anterior infarct Compared to ECG 12/19/2018 14:52:28 Left anterior fascicular block now present Incomplete right bundle-branch block now present Right bundle-branch block now present Left-axis deviation no longer present Myocardial infarct finding still present Electronically Signed On 02-23-2019 7:45:29 PST by Clint Charlton CM:EKGRPT:ELECTROCARDIOGRAM REPORT [id number] NEVIN MOYER DNP EPIPHANY DRAFT REPORT NEVIN MOYER DNP
[2019-02-22 16:58] VITALS: BP 164/97
[2019-02-22 18:16] LABS: BILIRUBIN NEGATIVE (NEGATIVE); BLOOD NEGATIVE (NEGATIVE); CLARITY CLEAR (CLEAR); COLOR YELLOW (YELLOW); GLUCOSE 3+ (NEGATIVE); KETONE TRACE (NEGATIVE); LEUKO ESTERASE NEGATIVE (NEGATIVE); NITRITE NEGATIVE (NEGATIVE); UROBILINOGEN 0.2 E.U./dl (0.2-1.0)
[2019-02-22 18:26] LABS: BASO % 0.4 % (0.0-1.0); EOS # 0.3 10*3/uL (0.0-0.4); EOS % 2.7 % (1.0-4.0); HEMATOCRIT 45.2 % (42.0-52.0); HEMOGLOBIN 15.6 g/dl (14.0-18.0); LYMPH # 2.5 10*3/uL (1.3-4.4); MEAN CELL VOLUME 79.3 fl (80.0-94.0); MEAN CORPUSCULAR HGB 27.4 pg (27.0-31.0); MEAN CORPUSCULAR HGB CONC 34.5 g/dl (33.0-37.0); MEAN PLATELET VOLUME 11.6 fl (9.6-12.3); MONO # 0.7 10*3/uL (0.1-1.0); MONO % 7.2 % (3.0-9.0); NEUT % 63.2 % (47.0-73.0); PLATELET COUNT AUTOMATED 232 10*3/uL (130-400); RED CELL DISTRI WIDTH 12.7 % (0-14.5); WHITE BLOOD COUNT 9.5 10*3/uL (4.8-10.8)
[2019-02-22 18:36] LABS: EPITHELIAL CELLS 0-2
[2019-02-22 18:38] LABS: ACT PARTIAL THROMBO TIME 25.7 SECONDS (20.0-32.1); INTERNATIONAL NORM RATIO 0.9 (2.0-3.5)
[2019-02-22 18:42] LABS: ALBUMIN 3.2 gm/dl (3.1-4.5); ALKALINE PHOSPHATASE 122 U/L (45-117); BUN 33 mg/dl (7-24); CHLORIDE 96 mmol/L (98-107); CREATININE 1.33 mg/dL (0.70-1.30); LIPASE 301 U/L (73-393); POTASSIUM 5.7 mmol/L (3.5-5.1); SODIUM 128 mmol/L (136-145); TOTAL PROTEIN 7.1 gm/dL (6.4-8.2); TROPONIN I 0.039 ng/ml (<0.045)
[2019-02-22 19:13] LABS: SGOT/AST 89 IU/L (3-35); SGPT/ALT 64 U/L (12-78)
--- NOTE | 2019-02-22 19:48 | NUR ---
PATIENT UPDATED ON THE PLAN OF CARE. PATIENT AT THIS TIME IS WITHOUT COMPLAINTS AND NO CONCERNS.
[2019-02-22 22:21] VITALS: BP 170/90
--- NOTE | 2019-02-22 22:21 | NUR ---
A 48, admitted to 5E, under the services of KATH Cedeno MD with a diagnosis of RANJITH, UNCONTROLLED DIABETES MELLITUS. Chief complaint is HYPERGLYCEMIA. Patient arrived via wheel chair from ER. Monitor applied. Initial assessment completed. Vital signs taken and recorded. KATH CEDENO MD notified of admission to the unit. Orders received. See assessment for past medical history, medications and allergies. Patient and/or family oriented to unit. [facility] visitation policy reviewed. Clothing/patient valuable form completed. JIMY BEAL
[2019-02-22] MEDS ORDERED: PROZAC40 M1 PO (22:47)
--- NOTE | 2019-02-22 23:00 | NUR ---
NOTIFIED DR HALL THAT PT MED REC IS UP TO DATE PER PT.
[2019-02-23] VITALS (7 sets, daily range): BP systolic 150–173; BP diastolic 86–100
--- NOTE | 2019-02-23 00:10 | NUR ---
NOTIFIED DR HALL THAT PT BLOOD PRESSURE IS ELEVATED. PHYSICIAN SAYS THAT SHE WILL ORDER SOMETHING FOR IT.
--- NOTE | 2019-02-23 00:45 | NUR ---
NOTIFIED DR [facility]ALL [facility] CLONIDINE TO BE USED PRN FOR BLOOD PRESSURE.
--- NOTE | 2019-02-23 03:00 | NUR ---
RECHECKED PT BLOOD SUGAR AND BLOOD PRESSURE AT THIS TIME. SEE DOCUMENTATION.
--- NOTE | 2019-02-23 09:00 | NUR ---
Quill Machine Operator in to talk to patient. Patient states lives at home with his . There are 0 steps in the home. Physician: Dr. Miguel Angel Crews Pharmacy: [facility] Home health services: none Patient's level of ADLs: INDEPENDENT Patient has working utilities: yes DME: O2 prn, portable O2 tanks, unsure of O2 supplier Follow-up physician's appointment after d/c: he prefers to make his own follow up appt after discharge Does patient want to access PORTAL?: no Discharge plan discussed with patient. He lives at home with his . He is independent in his ADLs and ambulation. Discussed home health care services and he denies any home needs at this time. When medically stable he will be discharged to home. He states he will ambulate home on discharge as he only lives a few blocks away. CRISTHIAN CALLEJAS
--- NOTE | 2019-02-23 10:00 | NUR ---
MESSAGE LEFT AT DR VIRGEN'S OFFICE ABOUT POSSIBLE REFERRAL NAME FOR [facility]IA. RESIDENT IN ROOM TALKING TO PATIENT
--- NOTE | 2019-02-23 11:47 | NUR ---
Nutritional Support Services Note: Discussing with pt diabetic diet. Declined diet copy states he has one from last admission. He states he has tried to eat better and walk more. Discussed healthy eating and proper portion sizes. Encouraged compliance to diet for continued weight loss and BS control. Pt has lost 10# since July. No other nutrition intervention needed at this time. Will follow. Ht5'9 [id number]#. Eliza Acharya Rdn Ld
--- NOTE | 2019-02-23 19:45 | NUR ---
NOTIFIED DR RAVI THAT PT BLOOD PRESSURE IS 160/[address] RAVI ABOUT PATIENT'S PRN CLONIDINE 0.1 MG THAT HE TAKES AT HOME FOR HIGH BLOOD PRESSURE. INFORMED PHYSICIAN THAT [facility] WANTED PARAMETERS LAST NIGHT BEFORE ADDING MEDICATION, THEREFORE MED WAS GIVEN ONE TIME DOSE BY PHYSICIAN COVERING THAT SHIFT. DR RAVI DOES NOT GIVE ORDERS TO GIVE CLONIDINE AT THIS TIME. PHYSICIAN STATES THAT MEDICATION CAN BE GIVEN IF SYSTOLIC BECOMES GREATER THAN 170. PHYSICIAN REQUESTS THAT CLONIDINE 01.MG TAB PRN BE ADDED WITH PARAMETERS GREATER THAN 170 SYSTOLIC. NO NEW ORDERS RECEIVED AT THIS TIME REGARDING PT DIASTOLIC NUMBER OF 100. WILL ADD MEDICATION FROM PT HOME MED LIST PER ORDERS GIVEN BY DR RAVI. WILL CONTINUE TO MONITOR PT BLOOD PRESSURE. WILL NOTIFY PATIENT.
--- NOTE | 2019-02-23 21:30 | NUR ---
HS MEDICATIONS GIVEN AT THIS TIME. RESPIRATIONS EASY AND UNLABORED ON ROOM AIR. NO S/S OF DISTRESS. NO COMPLAINTS VOICED. ASSESSMENT COMPLETE. ALL NEEDS MET, SAFETY MEASURES IN PLACE. CALL LIGHT IN REACH.
--- NOTE | 2019-02-23 23:26 | NUR ---
24 HR chart check completed.
[2019-02-24] VITALS: BP 154/101
[2019-02-24 06:00] VITALS: BP 164/88
[2019-02-24 06:09] LABS: BASO # 0.1 10*3/uL (0.0-0.1); BASO % 0.6 % (0.0-1.0); EOS # 0.4 10*3/uL (0.0-0.4); EOS % 4.5 % (1.0-4.0); HEMATOCRIT 43.7 % (42.0-52.0); HEMOGLOBIN 14.8 g/dl (14.0-18.0); MEAN CELL VOLUME 80.5 fl (80.0-94.0); MEAN CORPUSCULAR HGB 27.3 pg (27.0-31.0); MEAN CORPUSCULAR HGB CONC 33.9 g/dl (33.0-37.0); MEAN PLATELET VOLUME 10.8 fl (9.6-12.3); MONO # 0.6 10*3/uL (0.1-1.0); MONO % 7.4 % (3.0-9.0); NEUT # 4.2 10*3/uL (2.3-7.9); NEUT % 51.1 % (47.0-73.0); PLATELET COUNT AUTOMATED 218 10*3/uL (130-400); RED BLOOD COUNT 5.43 10*6/uL (4.50-5.90); RED CELL DISTRI WIDTH 13.1 % (0-14.5); WHITE BLOOD COUNT 8.3 10*3/uL (4.8-10.8)
--- NOTE | 2019-02-24 06:25 | NUR ---
PT RESTING IN BED. BLOOD SUGAR OBTAINED. 228, WILL COVER PT ACCORDING TO SLIDING SCALE ON EMAR. PT HAS NO COMPLAINTS THIS MORNING. RESPIRATIONS EASY AND UNLABORED ON ROOM AIR. CALL LIGHT IN REACH.
[2019-02-24 06:32] LABS: CHLORIDE 101 mmol/L (98-107); CREATININE 1.19 mg/dL (0.70-1.30); SODIUM 135 mmol/L (136-145)
[2019-02-24 06:33] LABS: BUN 18 mg/dl (7-24); POTASSIUM 3.6 mmol/L (3.5-5.1)
[2019-02-24 07:20] VITALS: BP 160/90
--- NOTE | 2019-02-24 08:05 | NUR ---
BP REMAINS ELEVATED SYSTOLIC >160 DIASTOLIC 90-100. CLONIDINE GIVEN PER PT REQUEST
[2019-02-24 12:00] VITALS: BP 150/80
--- NOTE | 2019-02-24 14:46 | NUR ---
PATIENT RESTING QUIETLY WAITING FOR DR DURANT TO COME FOR POSSIBLE DISCHARGE PER DISCUSSION YESTERDAY
[2019-02-24 16:00] VITALS: BP 150/72
[2019-02-24] MEDS ORDERED: BASAG SOL SQ (18:32)
[2019-02-24] MEDS ORDERED: ADMELOG100 UNIT/1 SQ (18:32)
--- NOTE | 2019-02-24 18:59 | NUR ---
Discharge instructions reviewed with patient/family. Patient receptive and verbalizes understanding. Follow-up care arranged. Written instructions given to patient/family.Hep Lock discontinued. Site asymptomatic. Pressure applied. Sterile dressing applied. SHANNAN LOUISE BARBARA
== END 2019-02-24 19:17 | disposition home or self-care (01) | DRG 683 ==
LOC: ED 16:57 → 5E 19:49 → EDHOLD 19:49 → 5E 21:29
PROVIDERS: Nurse Practitioner Family; Student in an Organized Health Care Education/Training Program; ADMIT Internal Medicine
DX: N17.9 Acute kidney failure, unspecified (principal); E87.1 Hypo-osmolality and hyponatremia; I13.0 Hypertensive heart and chronic kidney disease with heart failure and stage 1 through stage 4 chronic kidney disease, or unspecified chronic kidney disease; I50.32 Chronic diastolic (congestive) heart failure; Z68.41 Body mass index [BMI] 40.0-44.9, adult; E11.65 Type 2 diabetes mellitus with hyperglycemia; K43.2 Incisional hernia without obstruction or gangrene; E78.5 Hyperlipidemia, unspecified; F17.210 Nicotine dependence, cigarettes, uncomplicated; F32.9 Major depressive disorder, single episode, unspecified; N18.3 Chronic kidney disease, stage 3 (moderate); F41.1 Generalized anxiety disorder; E66.01 Morbid (severe) obesity due to excess calories; F43.10 Post-traumatic stress disorder, unspecified; Z90.49 Acquired absence of other specified parts of digestive tract; Z79.4 Long term (current) use of insulin

== ENCOUNTER 2019-06-10 15:57 | Inpatient (IN) | payer OTHER ==
[~2019-06-10] VITALS: Ht 175.2 cm; Wt 139.8 kg
[2019-06-10 16:01] VITALS: BP 121/68
--- NOTE | 2019-06-10 16:02 | NUR ---
PATIENT DENIES ANY WOUNDS.
[2019-06-10 16:28] LABS: BASO % 0.4 % (0.0-1.0); EOS # 0.2 10*3/uL (0.0-0.4); EOS % 2.2 % (1.0-4.0); HEMATOCRIT 41.9 % (42.0-52.0); HEMOGLOBIN 14.1 g/dl (14.0-18.0); LYMPH # 2.2 10*3/uL (1.3-4.4); LYMPH % 22.9 % (27.0-41.0); MEAN CELL VOLUME 82.3 fl (80.0-94.0); MEAN CORPUSCULAR HGB 27.7 pg (27.0-31.0); MEAN CORPUSCULAR HGB CONC 33.7 g/dl (33.0-37.0); MEAN PLATELET VOLUME 10.6 fl (9.6-12.3); MONO # 0.8 10*3/uL (0.1-1.0); MONO % 8.3 % (3.0-9.0); NEUT # 6.4 10*3/uL (2.3-7.9); NEUT % 65.8 % (47.0-73.0); PLATELET COUNT AUTOMATED 270 10*3/uL (130-400); RED BLOOD COUNT 5.09 10*6/uL (4.50-5.90); RED CELL DISTRI WIDTH 13.1 % (0-14.5); WHITE BLOOD COUNT 9.8 10*3/uL (4.8-10.8)
[2019-06-10 16:38] LABS: ACT PARTIAL THROMBO TIME 28.1 SECONDS (20.0-32.1); INTERNATIONAL NORM RATIO 0.9 (2.0-3.5)
[2019-06-10 16:43] LABS: ALBUMIN 3.1 gm/dl (3.1-4.5); ALKALINE PHOSPHATASE 105 U/L (45-117); BUN 23 mg/dl (7-24); CHLORIDE 100 mmol/L (98-107); CREATININE 1.44 mg/dL (0.70-1.30); LIPASE 297 U/L (73-393); POTASSIUM 4.7 mmol/L (3.5-5.1); SGOT/AST 18 IU/L (3-35); SGPT/ALT 49 U/L (12-78); SODIUM 133 mmol/L (136-145); TOTAL PROTEIN 6.6 gm/dL (6.4-8.2)
[2019-06-10 16:44] LABS: TROPONIN I < 0.015 ng/ml (<0.045)
[2019-06-10 18:20] VITALS: BP 131/77
--- NOTE | 2019-06-10 18:20 | NUR ---
Time: 1819 A 48 year old M admitted to 5E under services of DR. CARLEEN SILVA,[facility]. Pt. arrived via bed from ER. Chief complaint: ELEVATED BSG. GERARDO LEMUS
[2019-06-10 18:30] VITALS: BP 131/77
[2019-06-10] MEDS ORDERED: ACTOS30 M1 PO (18:48)
[2019-06-10] MEDS ORDERED: HUMALOG KW200 UNIT/1 SC (19:30)
[2019-06-10] MEDS ORDERED: BASAG SOL SC (19:34)
--- NOTE | 2019-06-10 19:35 | NUR ---
DR DURANT CONTACTED. ADMISSION ORDERS RECEIVED. INFORMED OF CRITICAL LACTIC. PATIENT RECEIVING IVF
[2019-06-10] MEDS ORDERED: ADMELOG100 UNIT/1 SC (19:36)
[2019-06-10 19:52] VITALS: BP 115/76
--- NOTE | 2019-06-10 20:38 | NUR ---
15 UNITS OF INSULIN ADMINISTERED AT THIS TIME PER DR DURANT.
--- NOTE | 2019-06-10 23:20 | NUR ---
CALL PLACED TO DR DURANT WITH BLOOD SUGAR RESULT OF 264 ORDERED. NO ANSWER.
[2019-06-11] VITALS: BP 126/74
--- NOTE | 2019-06-11 03:21 | NUR ---
24 HR chart check completed.
[2019-06-11 06:15] LABS: BASO % 0.4 % (0.0-1.0); EOS # 0.4 10*3/uL (0.0-0.4); EOS % 3.8 % (1.0-4.0); HEMATOCRIT 42.1 % (42.0-52.0); HEMOGLOBIN 13.9 g/dl (14.0-18.0); LYMPH # 2.9 10*3/uL (1.3-4.4); LYMPH % 29.1 % (27.0-41.0); MEAN CELL VOLUME 82.4 fl (80.0-94.0); MEAN CORPUSCULAR HGB 27.2 pg (27.0-31.0); MEAN PLATELET VOLUME 10.4 fl (9.6-12.3); MONO # 0.9 10*3/uL (0.1-1.0); MONO % 8.7 % (3.0-9.0); NEUT # 5.8 10*3/uL (2.3-7.9); NEUT % 57.7 % (47.0-73.0); PLATELET COUNT AUTOMATED 266 10*3/uL (130-400); RED BLOOD COUNT 5.11 10*6/uL (4.50-5.90); RED CELL DISTRI WIDTH 13.2 % (0-14.5); WHITE BLOOD COUNT 10.1 10*3/uL (4.8-10.8)
[2019-06-11 06:29] LABS: ALBUMIN 3.1 gm/dl (3.1-4.5); ALKALINE PHOSPHATASE 94 U/L (45-117); BUN 18 mg/dl (7-24); CHLORIDE 105 mmol/L (98-107); CREATININE 1.23 mg/dL (0.70-1.30); POTASSIUM 4.5 mmol/L (3.5-5.1); SGOT/AST 27 IU/L (3-35); SGPT/ALT 49 U/L (12-78); SODIUM 137 mmol/L (136-145); TOTAL PROTEIN 6.1 gm/dL (6.4-8.2)
--- NOTE | 2019-06-11 07:10 | NUR ---
ARRIVED ON SHIFT, INTRODUCED TO PATIENT, BWD IN LOW POSITION, WHEEL LOCKS ENGAGED, CALL LIGHT WITHIN REACH, NO NEEDS VOICED AT THIS TIME, WHITE BOARD UPDATED.
[2019-06-11 08:00] VITALS: BP 116/65
--- NOTE | 2019-06-11 10:30 | NUR ---
Soliciting Freight Agent in to talk to patient. Patient states lives at home with his . There are 0 steps in the home. Physician: Dr. Miguel Angel Crews Pharm[facility]: [facility] Home health services: none Patient's level of ADLs: INDEPENDENT Patient has working utilities: yes DME: O2 @ 2L nc prn, portable O2 tanks, nebulizer, O2 supplier Med Care Follow-up physician's appointment after d/c: he prefers to make his own follow up appt after discharge Does patient want to access PORTAL?: no Discharge plan discussed with patient. He lives at home with his . He is independent in his ADLs and ambulation. Discussed home health care services and he denies any home needs at this time. When medically stable he will be discharged to home. He states he will ambulate home on discharge as he only lives a few blocks away. CRISTHIAN CALLEJAS
[2019-06-11 10:58] LABS: BILIRUBIN NEGATIVE (NEGATIVE); BLOOD NEGATIVE (NEGATIVE); CLARITY CLEAR (CLEAR); COLOR YELLOW (YELLOW); GLUCOSE 3+ (NEGATIVE); KETONE NEGATIVE (NEGATIVE); LEUKO ESTERASE NEGATIVE (NEGATIVE); NITRITE NEGATIVE (NEGATIVE); RBC 0-2 rbc/hpf (0-2); SPECIFIC GRAVITY 1.015 (1.005-1.030); UROBILINOGEN 0.2 E.U./dl (0.2-1.0)
[2019-06-11 11:59] VITALS: BP 143/74
--- NOTE | 2019-06-11 16:00 | NUR ---
Discharge instructions reviewed with patient/family. Patient receptive and verbalizes understanding. Follow-up care arranged. Written instructions given to patient/family, per DEANNA Damon. PATIENT DISCHARGED TO [facility], [facility], FOR TRANSPORT HOME BY PRIVATE VEHICLE WITH FAMILY.
== END 2019-06-11 16:00 | disposition home or self-care (01) | DRG 638 ==
LOC: ED 15:57 → EDHOLD 17:12 → 5E 17:12
PROVIDERS: Nurse Practitioner Family; ADMIT Internal Medicine
DX: E11.65 Type 2 diabetes mellitus with hyperglycemia (principal); N17.9 Acute kidney failure, unspecified; E87.1 Hypo-osmolality and hyponatremia; I13.0 Hypertensive heart and chronic kidney disease with heart failure and stage 1 through stage 4 chronic kidney disease, or unspecified chronic kidney disease; E87.2 Acidosis; I50.30 Unspecified diastolic (congestive) heart failure; E86.0 Dehydration; E86.9 Volume depletion, unspecified; E83.51 Hypocalcemia; N28.9 Disorder of kidney and ureter, unspecified; E78.5 Hyperlipidemia, unspecified; F43.10 Post-traumatic stress disorder, unspecified; N18.3 Chronic kidney disease, stage 3 (moderate); J44.9 Chronic obstructive pulmonary disease, unspecified; F41.1 Generalized anxiety disorder; F32.9 Major depressive disorder, single episode, unspecified; F17.210 Nicotine dependence, cigarettes, uncomplicated; R79.82 Elevated C-reactive protein (CRP); Z90.5 Acquired absence of kidney; Z88.8 Allergy status to other drugs, medicaments and biological substances; Z79.899 Other long term (current) drug therapy; Z79.4 Long term (current) use of insulin

== ENCOUNTER 2019-12-05 14:29 | Emergency (ER) | payer OTHER ==
[~2019-12-05 14:29] MED LIST changes: +ACTOS30 M1 PO; +ADMELOG100 UNIT/1 SC; +BASAG SOL SC; +HUMALOG KW200 UNIT/1 SC
[2019-12-05 15:07] LABS: BASO % 0.4 % (0.0-1.0); EOS # 0.1 10*3/uL (0.0-0.4); EOS % 1.6 % (1.0-4.0); HEMATOCRIT 42.7 % (42.0-52.0); LYMPH # 1.9 10*3/uL (1.3-4.4); LYMPH % 24.7 % (27.0-41.0); MEAN CELL VOLUME 79.5 fl (80.0-94.0); MEAN PLATELET VOLUME 11.4 fl (9.6-12.3); MONO # 0.5 10*3/uL (0.1-1.0); MONO % 6.4 % (3.0-9.0); NEUT % 66.6 % (47.0-73.0); PLATELET COUNT AUTOMATED 206 10*3/uL (130-400); RED BLOOD COUNT 5.37 10*6/uL (4.50-5.90); RED CELL DISTRI WIDTH 13.1 % (0-14.5); WHITE BLOOD COUNT 7.5 10*3/uL (4.8-10.8)
[2019-12-05 15:21] LABS: INTERNATIONAL NORM RATIO 0.9 (2.0-3.5)
[2019-12-05 15:22] LABS: ALBUMIN 3.3 gm/dl (3.1-4.5); ALKALINE PHOSPHATASE 143 U/L (45-117); BUN 15 mg/dl (7-24); CHLORIDE 92 mmol/L (98-107); CREATININE 1.45 mg/dL (0.70-1.30); POTASSIUM 3.9 mmol/L (3.5-5.1); SGOT/AST 25 IU/L (3-35); SGPT/ALT 49 U/L (12-78); SODIUM 127 mmol/L (136-145); TOTAL PROTEIN 6.9 gm/dL (6.4-8.2)
[2019-12-05 15:58] LABS: BILIRUBIN NEGATIVE (NEGATIVE); BLOOD NEGATIVE (NEGATIVE); CLARITY CLEAR (CLEAR); COLOR YELLOW (YELLOW); GLUCOSE NEGATIVE (NEGATIVE); KETONE NEGATIVE (NEGATIVE); LEUKO ESTERASE NEGATIVE (NEGATIVE); NITRITE NEGATIVE (NEGATIVE); UROBILINOGEN 0.2 E.U./dl (0.2-1.0)
[2019-12-05 16:00] LABS: BACTERIA TRACE; EPITHELIAL CELLS 0-2; WBC 0-2 wbc/hpf (0-5)
== END 2019-12-05 17:09 | disposition home or self-care (01) ==
LOC: ED 14:29
PROVIDERS: Family Medicine
DX: E11.65 Type 2 diabetes mellitus with hyperglycemia (principal); I10 Essential (primary) hypertension; F41.9 Anxiety disorder, unspecified; Z88.8 Allergy status to other drugs, medicaments and biological substances; Z79.899 Other long term (current) drug therapy; Z79.4 Long term (current) use of insulin

== ENCOUNTER → 2020-03-14 | Outpatient (CLI) | payer OTHER | END | disposition home or self-care (01) | LOC: COVID19 11:48 | PROVIDERS: ATTEND Internal Medicine | DX: Z20.828 Contact with and (suspected) exposure to other viral communicable diseases (principal) ==

== ENCOUNTER → 2021-05-05 | Outpatient (CLI) | payer OTHER ==
[~2021-05-05] MED LIST changes: +ASPIRIN ADULT L81 M2 PO; +METOPROLOL SUCC25 M2 PO; +NORVASC5 MG PO
== END ==
LOC: CARD 12:27
PROVIDERS: ATTEND Internal Medicine Cardiovascular Disease
DX: I42.8 Other cardiomyopathies (principal)

== ENCOUNTER 2021-10-20 09:25 | Inpatient (IN) | payer OTHER ==
[2021-10-20] VITALS (7 sets, daily range): BP systolic 98–182; BP diastolic 68–106
[~2021-10-20] VITALS: Ht 175.3 cm; Wt 119.0 kg
[~2021-10-20 09:25] MED LIST changes: +PROZAC20 MG PO; +ZYPREXA15 M1 PO
[2021-10-20 10:05] LABS: MEAN CELL VOLUME 81.1 fl (80.0-94.0); MEAN CORPUSCULAR HGB CONC 33.3 g/dl (33.0-37.0); MEAN PLATELET VOLUME 10.8 fl (9.6-12.3); PLATELET COUNT AUTOMATED 410 10*3/uL (130-400); RED BLOOD COUNT 5.18 10*6/uL (4.50-5.90); RED CELL DISTRI WIDTH 14.3 % (0-14.5); WHITE BLOOD COUNT 16.2 10*3/uL (4.8-10.8)
[2021-10-20 10:10] LABS: MANUAL DIFF REFLEX YES
[2021-10-20 10:22] LABS: ACT PARTIAL THROMBO TIME 31.3 SECONDS (20.0-32.1); INTERNATIONAL NORM RATIO 1.2 (2.0-3.5)
[2021-10-20 10:23] LABS: BUN 21 mg/dl (7-24); CHLORIDE 103 mmol/L (98-107); CREATININE 1.12 mg/dL (0.70-1.30); LIPASE 239 U/L (73-393); POTASSIUM 2.8 mmol/L (3.5-5.1); SGOT/AST 44 IU/L (3-35); SGPT/ALT 71 U/L (12-78); SODIUM 137 mmol/L (136-145)
[2021-10-20 10:24] LABS: ALKALINE PHOSPHATASE 159 U/L (45-117); TOTAL PROTEIN 6.5 gm/dL (6.4-8.2)
[2021-10-20 10:31] LABS: TOTAL CELLS COUNTED 100 #CELLS
[2021-10-20 10:32] LABS: BURR CELLS FEW; PLATELET SUFFICIENCY HIGH (NORMAL); POLYCHROMASIA SLIGHT
[2021-10-20] MEDS ORDERED: DIAZEPAM5 MG PO (12:48)
[2021-10-20] MEDS ORDERED: ATORVASTATIN CA40 M1 PO (12:53)
[2021-10-20] MEDS ORDERED: AMLODIPINE BESY10 MG PO (12:53)
[2021-10-20] MEDS ORDERED: FUROSEMIDE20 M1 PO (12:54)
[2021-10-20] MEDS ORDERED: LISINOPRIL20 MG PO (12:55)
[2021-10-20] MEDS ORDERED: JARDIANCE25 MG PO (12:55)
[2021-10-20 13:35] LABS: ABG BASE EXCESS -1.4 mmol/L (-2.0-2.0); ARTERIAL BLOOD GAS PH 7.414 (7.35-7.45); ARTERIAL BLOOD GAS PO2 55.4 (80-90)
[2021-10-20 21:07] LABS: ABG BASE EXCESS -4.9 mmol/L (-2.0-2.0); ARTERIAL BLOOD GAS PH 7.327 (7.35-7.45)
[2021-10-21] VITALS: BP 128/105
[2021-10-21 04:00] VITALS: BP 139/83
[2021-10-21 04:17] LABS: HEMATOCRIT 43.7 % (42.0-52.0); MEAN PLATELET VOLUME 10.8 fl (9.6-12.3); PLATELET COUNT AUTOMATED 531 10*3/uL (130-400); RED BLOOD COUNT 5.18 10*6/uL (4.50-5.90); RED CELL DISTRI WIDTH 14.9 % (0-14.5)
[2021-10-21 04:18] LABS: MANUAL DIFF REFLEX YES; MEAN CELL VOLUME 84.4 fl (80.0-94.0)
[2021-10-21 04:19] LABS: WHITE BLOOD COUNT 40.9 10*3/uL (4.8-10.8)
[2021-10-21 04:32] LABS: CHLORIDE 107 mmol/L (98-107); CREATININE 1.32 mg/dL (0.70-1.30); SODIUM 137 mmol/L (136-145)
[2021-10-21 04:33] LABS: BUN 33 mg/dl (7-24); POTASSIUM 5.1 mmol/L (3.5-5.1)
[2021-10-21 04:41] LABS: PLATELET SUFFICIENCY HIGH (NORMAL); TOTAL CELLS COUNTED 100 #CELLS
[2021-10-21 08:00] VITALS: BP 102/73
[2021-10-21 08:15] LABS: ABG BASE EXCESS -3.4 mmol/L (-2.0-2.0); ARTERIAL BLOOD GAS PH 7.403 (7.35-7.45); ARTERIAL BLOOD GAS PO2 90.1 (80-90)
[2021-10-21 12:00] VITALS: BP 101/67
[2021-10-21 16:00] VITALS: BP 101/71
[2021-10-21 20:00] VITALS: BP 98/58
[2021-10-22] VITALS: BP 101/55
[2021-10-22 04:00] VITALS: BP 119/80
[2021-10-22 06:01] LABS: HEMATOCRIT 37.1 % (42.0-52.0); MEAN CELL VOLUME 83.4 fl (80.0-94.0); MEAN CORPUSCULAR HGB 27.9 pg (27.0-31.0); MEAN CORPUSCULAR HGB CONC 33.4 g/dl (33.0-37.0); MEAN PLATELET VOLUME 11.1 fl (9.6-12.3); NUCLEATED RED BLOOD CELL 0.1 % (0.0-0.0); PLATELET COUNT AUTOMATED 545 10*3/uL (130-400); RED BLOOD COUNT 4.45 10*6/uL (4.50-5.90); RED CELL DISTRI WIDTH 14.8 % (0-14.5); WHITE BLOOD COUNT 36.4 10*3/uL (4.8-10.8)
[2021-10-22 06:05] LABS: CHLORIDE 101 mmol/L (98-107); CREATININE 1.38 mg/dL (0.70-1.30); SODIUM 134 mmol/L (136-145)
[2021-10-22 06:06] LABS: BUN 51 mg/dl (7-24); POTASSIUM 3.5 mmol/L (3.5-5.1)
[2021-10-22 06:12] LABS: MANUAL DIFF REFLEX YES
[2021-10-22 06:55] LABS: PLATELET SUFFICIENCY HIGH (NORMAL); TOTAL CELLS COUNTED 100 #CELLS
[2021-10-22 08:00] VITALS: BP 102/64; BP 99/39
[2021-10-22 12:00] VITALS: BP 103/75
[2021-10-22 16:00] VITALS: BP 104/65
[2021-10-22 20:00] VITALS: BP 108/69
[2021-10-23] VITALS: BP 110/66
[2021-10-23 04:00] VITALS: BP 128/82
[2021-10-23 06:41] LABS: HEMATOCRIT 39.2 % (42.0-52.0); MEAN CELL VOLUME 82.5 fl (80.0-94.0); MEAN CORPUSCULAR HGB 26.7 pg (27.0-31.0); MEAN CORPUSCULAR HGB CONC 32.4 g/dl (33.0-37.0); MEAN PLATELET VOLUME 10.7 fl (9.6-12.3); PLATELET COUNT AUTOMATED 510 10*3/uL (130-400); RED BLOOD COUNT 4.75 10*6/uL (4.50-5.90); RED CELL DISTRI WIDTH 14.9 % (0-14.5); WHITE BLOOD COUNT 21.5 10*3/uL (4.8-10.8)
[2021-10-23 06:47] LABS: MANUAL DIFF REFLEX YES
[2021-10-23 06:57] LABS: BUN 49 mg/dl (7-24); CHLORIDE 102 mmol/L (98-107); CREATININE 1.33 mg/dL (0.70-1.30); POTASSIUM 4.4 mmol/L (3.5-5.1); SODIUM 135 mmol/L (136-145)
[2021-10-23 07:02] LABS: ATYPICAL LYMPHS 1 % (0-0); TOTAL CELLS COUNTED 100 #CELLS
[2021-10-23 07:03] LABS: DOHLE BODIES FEW; POLYCHROMASIA SLIGHT; TOXIC GRANULATION SLIGHT
[2021-10-23 07:04] LABS: PLATELET SUFFICIENCY HIGH (NORMAL); ROULEAUX SLIGHT
[2021-10-23 08:00] VITALS: BP 181/94
[2021-10-23 12:00] VITALS: BP 140/64
[2021-10-23 16:00] VITALS: BP 168/91
[2021-10-23 20:00] VITALS: BP 115/61
[2021-10-24] VITALS: BP 122/72
[2021-10-24 04:00] VITALS: BP 133/82
[2021-10-24 06:16] LABS: HEMATOCRIT 36.8 % (42.0-52.0); MEAN CELL VOLUME 83.3 fl (80.0-94.0); MEAN CORPUSCULAR HGB 27.4 pg (27.0-31.0); MEAN CORPUSCULAR HGB CONC 32.9 g/dl (33.0-37.0); MEAN PLATELET VOLUME 10.8 fl (9.6-12.3); PLATELET COUNT AUTOMATED 443 10*3/uL (130-400); RED BLOOD COUNT 4.42 10*6/uL (4.50-5.90); RED CELL DISTRI WIDTH 14.9 % (0-14.5); WHITE BLOOD COUNT 17.8 10*3/uL (4.8-10.8)
[2021-10-24 06:26] LABS: MANUAL DIFF REFLEX YES
[2021-10-24 06:40] LABS: PLATELET SUFFICIENCY HIGH (NORMAL); TOTAL CELLS COUNTED 100 #CELLS
[2021-10-24 08:00] VITALS: BP 127/85
[2021-10-24 12:00] VITALS: BP 144/79
[2021-10-24 16:00] VITALS: BP 162/102
[2021-10-24 20:00] VITALS: BP 149/84
[2021-10-25] VITALS: BP 134/76
[2021-10-25 04:00] VITALS: BP 122/84
[2021-10-25 05:22] LABS: CHLORIDE 101 mmol/L (98-107); POTASSIUM 4.3 mmol/L (3.5-5.1); SODIUM 136 mmol/L (136-145)
[2021-10-25 05:25] LABS: ALKALINE PHOSPHATASE 194 U/L (45-117); CREATININE 0.85 mg/dL (0.70-1.30); SGOT/AST 129 IU/L (3-35); SGPT/ALT 106 U/L (12-78); TOTAL PROTEIN 6.3 gm/dL (6.4-8.2)
[2021-10-25 05:26] LABS: BUN 24 mg/dl (7-24)
[2021-10-25 06:16] LABS: HEMATOCRIT 37.2 % (42.0-52.0); MEAN CELL VOLUME 84.7 fl (80.0-94.0); MEAN CORPUSCULAR HGB 27.1 pg (27.0-31.0); PLATELET COUNT AUTOMATED 467 10*3/uL (130-400); RED BLOOD COUNT 4.39 10*6/uL (4.50-5.90); RED CELL DISTRI WIDTH 14.8 % (0-14.5)
[2021-10-25 06:24] LABS: MANUAL DIFF REFLEX YES
[2021-10-25 06:58] LABS: PLATELET SUFFICIENCY HIGH (NORMAL); TOTAL CELLS COUNTED 100 #CELLS
[2021-10-25 08:00] VITALS: BP 144/84
[2021-10-25 12:00] VITALS: BP 154/88
[2021-10-25 16:00] VITALS: BP 152/84
[2021-10-25 20:00] VITALS: BP 157/91
[2021-10-26] VITALS: BP 147/88
[2021-10-26 04:00] VITALS: BP 133/85
[2021-10-26 05:14] LABS: ALKALINE PHOSPHATASE 181 U/L (45-117); BUN 16 mg/dl (7-24); CHLORIDE 100 mmol/L (98-107); CREATININE 0.79 mg/dL (0.70-1.30); POTASSIUM 4.4 mmol/L (3.5-5.1); SGOT/AST 60 IU/L (3-35); SGPT/ALT 83 U/L (12-78); SODIUM 134 mmol/L (136-145); TOTAL PROTEIN 6.4 gm/dL (6.4-8.2)
[2021-10-26 07:05] LABS: HEMATOCRIT 36.3 % (42.0-52.0); MEAN CELL VOLUME 84.6 fl (80.0-94.0); MEAN CORPUSCULAR HGB 27.3 pg (27.0-31.0); MEAN CORPUSCULAR HGB CONC 32.2 g/dl (33.0-37.0); MEAN PLATELET VOLUME 11.3 fl (9.6-12.3); PLATELET COUNT AUTOMATED 465 10*3/uL (130-400); RED BLOOD COUNT 4.29 10*6/uL (4.50-5.90); RED CELL DISTRI WIDTH 14.7 % (0-14.5); WHITE BLOOD COUNT 15.8 10*3/uL (4.8-10.8)
[2021-10-26 07:14] LABS: MANUAL DIFF REFLEX YES
[2021-10-26 07:49] LABS: PLATELET SUFFICIENCY HIGH (NORMAL); TOTAL CELLS COUNTED 100 #CELLS
[2021-10-26 08:00] VITALS: BP 158/102
[2021-10-26 12:00] VITALS: BP 134/81
[2021-10-26 16:00] VITALS: BP 130/73
[2021-10-26 20:00] VITALS: BP 158/87
[2021-10-27] VITALS: BP 152/93
[2021-10-27 04:00] VITALS: BP 162/84
[2021-10-27 06:07] LABS: HBSAG Negative (Negative); HEP B CORE AB, IGM Negative (Negative); HEPATITIS C ANTIBODY <0.1 (0.0-0.9)
[2021-10-27 07:58] LABS: HEMATOCRIT 36.7 % (42.0-52.0); MEAN CELL VOLUME 83.2 fl (80.0-94.0); MEAN CORPUSCULAR HGB 26.5 pg (27.0-31.0); MEAN CORPUSCULAR HGB CONC 31.9 g/dl (33.0-37.0); MEAN PLATELET VOLUME 10.4 fl (9.6-12.3); PLATELET COUNT AUTOMATED 513 10*3/uL (130-400); RED BLOOD COUNT 4.41 10*6/uL (4.50-5.90); RED CELL DISTRI WIDTH 14.5 % (0-14.5); WHITE BLOOD COUNT 16.4 10*3/uL (4.8-10.8)
[2021-10-27 08:00] VITALS: BP 140/92
[2021-10-27 08:06] LABS: MANUAL DIFF REFLEX YES
[2021-10-27 08:14] LABS: BUN 14 mg/dl (7-24); CHLORIDE 99 mmol/L (98-107); POTASSIUM 4.5 mmol/L (3.5-5.1); SODIUM 136 mmol/L (136-145)
[2021-10-27 08:21] LABS: BASOPHILS 1 % (0-1); TOTAL CELLS COUNTED 100 #CELLS
[2021-10-27 08:22] LABS: PLATELET SUFFICIENCY HIGH (NORMAL)
[2021-10-27 12:00] VITALS: BP 150/96
[2021-10-27 16:00] VITALS: BP 140/82
[2021-10-27 20:00] VITALS: BP 139/79
[2021-10-28] VITALS: BP 123/78
[2021-10-28 04:00] VITALS: BP 118/86
[2021-10-28 05:20] LABS: BUN 12 mg/dl (7-24); CHLORIDE 99 mmol/L (98-107); CREATININE 0.78 mg/dL (0.70-1.30); POTASSIUM 4.3 mmol/L (3.5-5.1); SGOT/AST 44 IU/L (3-35); SGPT/ALT 55 U/L (12-78); SODIUM 135 mmol/L (136-145); TOTAL PROTEIN 6.6 gm/dL (6.4-8.2)
[2021-10-28 05:21] LABS: ALKALINE PHOSPHATASE 157 U/L (45-117)
[2021-10-28 06:24] LABS: HEMATOCRIT 37.4 % (42.0-52.0); MEAN CELL VOLUME 84.4 fl (80.0-94.0); MEAN CORPUSCULAR HGB 26.4 pg (27.0-31.0); MEAN CORPUSCULAR HGB CONC 31.3 g/dl (33.0-37.0); MEAN PLATELET VOLUME 10.6 fl (9.6-12.3); PLATELET COUNT AUTOMATED 561 10*3/uL (130-400); RED BLOOD COUNT 4.43 10*6/uL (4.50-5.90); RED CELL DISTRI WIDTH 14.2 % (0-14.5); WHITE BLOOD COUNT 17.4 10*3/uL (4.8-10.8)
[2021-10-28 06:32] LABS: MANUAL DIFF REFLEX YES
[2021-10-28 07:00] LABS: ATYPICAL LYMPHS 1 % (0-0); PLATELET SUFFICIENCY HIGH (NORMAL); TOTAL CELLS COUNTED 100 #CELLS
[2021-10-28 08:00] VITALS: BP 138/81
[2021-10-28 17:45] VITALS: BP 145/90
[2021-10-28 20:00] VITALS: BP 110/58
== END 2021-10-28 22:15 | disposition short-term general hospital (02) | DRG 871 ==
LOC: ED 09:25 → EDHOLD 11:21 → ICCU 11:21
PROVIDERS: Emergency Medicine; Internal Medicine; Internal Medicine Critical Care Medicine; Internal Medicine Infectious Disease; ADMIT Internal Medicine; ATTEND Internal Medicine
PROC: 5A09357 Assistance with Respiratory Ventilation, Less than 24 Consecutive Hours, Continuous Positive Airway Pressure (ICD-10-PCS; principal; 2021-10-20)
PROC: 5A09357 Assistance with Respiratory Ventilation, Less than 24 Consecutive Hours, Continuous Positive Airway Pressure (ICD-10-PCS; 2021-10-21)
PROC: 5A0935A Assistance with Respiratory Ventilation, Less than 24 Consecutive Hours, High Flow/Velocity Cannula (ICD-10-PCS; 2021-10-21)
PROC: 5A09357 Assistance with Respiratory Ventilation, Less than 24 Consecutive Hours, Continuous Positive Airway Pressure (ICD-10-PCS; 2021-10-22)
PROC: 5A0935A Assistance with Respiratory Ventilation, Less than 24 Consecutive Hours, High Flow/Velocity Cannula (ICD-10-PCS; 2021-10-22)
PROC: 5A09357 Assistance with Respiratory Ventilation, Less than 24 Consecutive Hours, Continuous Positive Airway Pressure (ICD-10-PCS; 2021-10-23)
PROC: 5A0935A Assistance with Respiratory Ventilation, Less than 24 Consecutive Hours, High Flow/Velocity Cannula (ICD-10-PCS; 2021-10-23)
PROC: 5A09357 Assistance with Respiratory Ventilation, Less than 24 Consecutive Hours, Continuous Positive Airway Pressure (ICD-10-PCS; 2021-10-24)
PROC: 5A0935A Assistance with Respiratory Ventilation, Less than 24 Consecutive Hours, High Flow/Velocity Cannula (ICD-10-PCS; 2021-10-24)
PROC: 5A09357 Assistance with Respiratory Ventilation, Less than 24 Consecutive Hours, Continuous Positive Airway Pressure (ICD-10-PCS; 2021-10-25)
PROC: 5A09357 Assistance with Respiratory Ventilation, Less than 24 Consecutive Hours, Continuous Positive Airway Pressure (ICD-10-PCS; 2021-10-26)
PROC: 5A0935A Assistance with Respiratory Ventilation, Less than 24 Consecutive Hours, High Flow/Velocity Cannula (ICD-10-PCS; 2021-10-26)
PROC: 5A09357 Assistance with Respiratory Ventilation, Less than 24 Consecutive Hours, Continuous Positive Airway Pressure (ICD-10-PCS; 2021-10-27)
PROC: 5A0935A Assistance with Respiratory Ventilation, Less than 24 Consecutive Hours, High Flow/Velocity Cannula (ICD-10-PCS; 2021-10-27)
DX: A41.3 Sepsis due to Hemophilus influenzae (principal); J86.9 Pyothorax without fistula; J18.9 Pneumonia, unspecified organism; J96.21 Acute and chronic respiratory failure with hypoxia; J96.22 Acute and chronic respiratory failure with hypercapnia; E43 Unspecified severe protein-calorie malnutrition; I13.0 Hypertensive heart and chronic kidney disease with heart failure and stage 1 through stage 4 chronic kidney disease, or unspecified chronic kidney disease; I50.32 Chronic diastolic (congestive) heart failure; N17.9 Acute kidney failure, unspecified; Q60.0 Renal agenesis, unilateral; Z20.822 Contact with and (suspected) exposure to COVID-19; N18.31 Chronic kidney disease, stage 3a; E11.22 Type 2 diabetes mellitus with diabetic chronic kidney disease; E78.2 Mixed hyperlipidemia; E83.42 Hypomagnesemia; E87.6 Hypokalemia; R65.20 Severe sepsis without septic shock; E66.8 Other obesity; F32.9 Major depressive disorder, single episode, unspecified; R74.01 Elevation of levels of liver transaminase levels; R62.7 Adult failure to thrive; I95.9 Hypotension, unspecified; F41.1 Generalized anxiety disorder; D64.9 Anemia, unspecified; K45.8 Other specified abdominal hernia without obstruction or gangrene; I25.2 Old myocardial infarction; Z88.8 Allergy status to other drugs, medicaments and biological substances; Z90.5 Acquired absence of kidney; Z68.38 Body mass index [BMI] 38.0-38.9, adult

== ENCOUNTER 2021-11-18 14:26 | Emergency (ER) | payer OTHER ==
[~2021-11-18] VITALS: Wt 111.1 kg
[~2021-11-18 14:26] MED LIST changes: +AMLODIPINE BESY10 MG PO; +ATORVASTATIN CA40 M1 PO; +DIAZEPAM5 MG PO; +FUROSEMIDE20 M1 PO; +JARDIANCE25 MG PO
[2021-11-18 15:13] LABS: BASO # 0.1 10*3/uL (0.0-0.1); BASO % 0.4 % (0.0-1.0); EOS # 0.5 10*3/uL (0.0-0.4); EOS % 4.1 % (1.0-4.0); HEMATOCRIT 32.6 % (42.0-52.0); LYMPH # 2.6 10*3/uL (1.3-4.4); LYMPH % 20.4 % (27.0-41.0); MEAN CELL VOLUME 84.5 fl (80.0-94.0); MEAN CORPUSCULAR HGB 27.7 pg (27.0-31.0); MEAN CORPUSCULAR HGB CONC 32.8 g/dl (33.0-37.0); MEAN PLATELET VOLUME 9.5 fl (9.6-12.3); MONO # 1.4 10*3/uL (0.1-1.0); MONO % 10.5 % (3.0-9.0); NEUT # 8.2 10*3/uL (2.3-7.9); PLATELET COUNT AUTOMATED 395 10*3/uL (130-400); RED BLOOD COUNT 3.86 10*6/uL (4.50-5.90); RED CELL DISTRI WIDTH 16.1 % (0-14.5); WHITE BLOOD COUNT 12.8 10*3/uL (4.8-10.8)
[2021-11-18 15:25] LABS: BUN 11 mg/dl (7-24); CHLORIDE 105 mmol/L (98-107); CREATININE 1.05 mg/dL (0.70-1.30); POTASSIUM 4.3 mmol/L (3.5-5.1); SODIUM 140 mmol/L (136-145)
== END 2021-11-18 19:26 | disposition home or self-care (01) ==
LOC: ED 14:26
PROVIDERS: Physician Assistant
DX: I10 Essential (primary) hypertension (principal); F17.210 Nicotine dependence, cigarettes, uncomplicated; Z98.890 Other specified postprocedural states; Z90.89 Acquired absence of other organs; Z79.899 Other long term (current) drug therapy; Z79.82 Long term (current) use of aspirin

== ENCOUNTER → 2021-12-14 | Outpatient (CLI) | payer OTHER | END | disposition home or self-care (01) | LOC: RAD 11:34 | PROVIDERS: ATTEND Internal Medicine | DX: J86.9 Pyothorax without fistula (principal); J90 Pleural effusion, not elsewhere classified ==

== ENCOUNTER → 2022-05-28 | Outpatient (CLI) | payer OTHER ==
[~2022-05-28] MED LIST changes: +CEFUROXIME AXE500 MG PO; +CLONIDINE HCL0.1 MG PO; +ENTRESTO 24 MG1 EACH PO; +FLOMAX0.4 MG PO; +IMDUR SA30 MG PO; +PROVENTIL HFA6.7 GM PO; +SPIRIVA RESPIMAT4 GM INH; +SYMB160 INH; +TRULICITY1.5 MG/0.5 SC; +VIBRAMYCIN100 MG PO
[2022-05-28 14:49] LABS: BASO % 0.2 % (0.0-1.0); EOS # 0.1 10*3/uL (0.0-0.4); EOS % 1.1 % (1.0-4.0); HEMATOCRIT 41.4 % (42.0-52.0); LYMPH # 2.8 10*3/uL (1.3-4.4); LYMPH % 23.9 % (27.0-41.0); MEAN CELL VOLUME 78.7 fl (80.0-94.0); MEAN CORPUSCULAR HGB 25.5 pg (27.0-31.0); MEAN CORPUSCULAR HGB CONC 32.4 g/dl (33.0-37.0); MEAN PLATELET VOLUME 10.5 fl (9.6-12.3); MONO # 0.9 10*3/uL (0.1-1.0); MONO % 7.6 % (3.0-9.0); NEUT # 7.7 10*3/uL (2.3-7.9); NEUT % 66.8 % (47.0-73.0); PLATELET COUNT AUTOMATED 270 10*3/uL (130-400); RED BLOOD COUNT 5.26 10*6/uL (4.50-5.90); RED CELL DISTRI WIDTH 14.8 % (0-14.5); WHITE BLOOD COUNT 11.6 10*3/uL (4.8-10.8)
[2022-05-28 14:59] LABS: ALKALINE PHOSPHATASE 94 U/L (46-116); BUN 13 mg/dl (9-23); CHLORIDE 105 mmol/L (98-107); POTASSIUM 3.7 mmol/L (3.4-5.1); SGPT/ALT 31 U/L (10-49); TOTAL PROTEIN 6.3 gm/dL (6.0-8.0)
== END | disposition home or self-care (01) ==
LOC: LAB 14:26
PROVIDERS: ATTEND Internal Medicine
DX: I50.22 Chronic systolic (congestive) heart failure (principal)

== ENCOUNTER → 2022-08-23 | Outpatient (CLI) | payer OTHER | END | disposition home or self-care (01) | LOC: WOUNDCARE 08:39 | PROVIDERS: ATTEND Nurse Practitioner Primary Care | DX: S30.811A Abrasion of abdominal wall, initial encounter (principal); E11.22 Type 2 diabetes mellitus with diabetic chronic kidney disease; I13.0 Hypertensive heart and chronic kidney disease with heart failure and stage 1 through stage 4 chronic kidney disease, or unspecified chronic kidney disease; N18.9 Chronic kidney disease, unspecified; I50.9 Heart failure, unspecified; E78.5 Hyperlipidemia, unspecified; I25.2 Old myocardial infarction; N40.0 Benign prostatic hyperplasia without lower urinary tract symptoms; I25.10 Atherosclerotic heart disease of native coronary artery without angina pectoris; J44.9 Chronic obstructive pulmonary disease, unspecified; F32.A Depression, unspecified; F17.200 Nicotine dependence, unspecified, uncomplicated; Z79.4 Long term (current) use of insulin; X58.XXXA Exposure to other specified factors, initial encounter; Y93.89 Activity, other specified; Y92.89 Other specified places as the place of occurrence of the external cause; Y99.8 Other external cause status ==

== ENCOUNTER → 2023-01-19 | Outpatient (CLI) | payer OTHER ==
[2023-01-19 14:29] LABS: POTASSIUM 3.7 mmol/L (3.4-5.1)
== END | disposition home or self-care (01) ==
LOC: LAB 13:36
PROVIDERS: Internal Medicine; ATTEND Internal Medicine Advanced Heart Failure and Transplant Cardiology
DX: I50.22 Chronic systolic (congestive) heart failure (principal); E11.21 Type 2 diabetes mellitus with diabetic nephropathy

== ENCOUNTER → 2023-01-26 | Outpatient (CLI) | payer OTHER ==
[2023-01-26 12:34] LABS: BUN 15 mg/dl (9-23); POTASSIUM 4.1 mmol/L (3.4-5.1)
== END | disposition home or self-care (01) ==
LOC: LAB 11:37
PROVIDERS: ATTEND Internal Medicine Advanced Heart Failure and Transplant Cardiology
DX: I51.9 Heart disease, unspecified (principal)

== ENCOUNTER → 2023-02-09 | Outpatient (CLI) | payer OTHER ==
[2023-02-09 14:55] LABS: BUN 8 mg/dl (9-23); POTASSIUM 3.5 mmol/L (3.4-5.1)
== END | disposition home or self-care (01) ==
LOC: LAB 13:56
PROVIDERS: ATTEND Internal Medicine Advanced Heart Failure and Transplant Cardiology
DX: I51.9 Heart disease, unspecified (principal)

== ENCOUNTER → 2023-04-15 | Outpatient (CLI) | payer OTHER, MEDICAID ==
[~2023-04-15] MED LIST changes: +ALDACTONE25 M1 PO; +ASPIRIN81 M1 PO; +ENTRESTO 97 MG1 EACH PO; +HUMALOG100 UNIT/2 SC; +JARDIANCE10 MG PO; +LASIX40 MG PO; +Magnesium Oxid400 MG PO; +POTASSIUM CHLO20 ME3 PO
== END | disposition home or self-care (01) ==
LOC: CARD 00:18
PROVIDERS: ATTEND Internal Medicine Cardiovascular Disease
DX: I10 Essential (primary) hypertension (principal); I24.1 Dressler's syndrome

== ENCOUNTER → 2023-05-02 | Outpatient (CLI) | payer MEDICARE, MEDICAID | END | disposition home or self-care (01) | LOC: WOUNDCARE 04:54 | PROVIDERS: ATTEND Nurse Practitioner Family | DX: S31.109A Unspecified open wound of abdominal wall, unspecified quadrant without penetration into peritoneal cavity, initial encounter (principal); L98.492 Non-pressure chronic ulcer of skin of other sites with fat layer exposed; E10.622 Type 1 diabetes mellitus with other skin ulcer; E10.69 Type 1 diabetes mellitus with other specified complication; E10.65 Type 1 diabetes mellitus with hyperglycemia; E10.22 Type 1 diabetes mellitus with diabetic chronic kidney disease; I13.0 Hypertensive heart and chronic kidney disease with heart failure and stage 1 through stage 4 chronic kidney disease, or unspecified chronic kidney disease; N18.9 Chronic kidney disease, unspecified; I50.9 Heart failure, unspecified; E66.01 Morbid (severe) obesity due to excess calories; K46.9 Unspecified abdominal hernia without obstruction or gangrene; N40.0 Benign prostatic hyperplasia without lower urinary tract symptoms; E78.5 Hyperlipidemia, unspecified; I25.2 Old myocardial infarction; J44.9 Chronic obstructive pulmonary disease, unspecified; F17.210 Nicotine dependence, cigarettes, uncomplicated; F32.9 Major depressive disorder, single episode, unspecified; Z68.41 Body mass index [BMI] 40.0-44.9, adult; X58.XXXA Exposure to other specified factors, initial encounter; Y93.89 Activity, other specified; Y92.89 Other specified places as the place of occurrence of the external cause; Y99.8 Other external cause status ==

== ENCOUNTER → 2023-05-09 | Outpatient (CLI) | payer MEDICARE, MEDICAID | END | disposition home or self-care (01) | LOC: WOUNDCARE 00:39 | PROVIDERS: ATTEND Nurse Practitioner Family | DX: S30.821D Blister (nonthermal) of abdominal wall, subsequent encounter (principal); E11.622 Type 2 diabetes mellitus with other skin ulcer; L98.492 Non-pressure chronic ulcer of skin of other sites with fat layer exposed; K46.9 Unspecified abdominal hernia without obstruction or gangrene; E11.65 Type 2 diabetes mellitus with hyperglycemia; E11.22 Type 2 diabetes mellitus with diabetic chronic kidney disease; I13.0 Hypertensive heart and chronic kidney disease with heart failure and stage 1 through stage 4 chronic kidney disease, or unspecified chronic kidney disease; N18.30 Chronic kidney disease, stage 3 unspecified; I50.9 Heart failure, unspecified; I25.2 Old myocardial infarction; J44.9 Chronic obstructive pulmonary disease, unspecified; N40.0 Benign prostatic hyperplasia without lower urinary tract symptoms; E78.5 Hyperlipidemia, unspecified; E66.01 Morbid (severe) obesity due to excess calories; F32.9 Major depressive disorder, single episode, unspecified; F17.210 Nicotine dependence, cigarettes, uncomplicated; Z68.41 Body mass index [BMI] 40.0-44.9, adult; Z90.5 Acquired absence of kidney; Z79.4 Long term (current) use of insulin; Z79.82 Long term (current) use of aspirin; X58.XXXD Exposure to other specified factors, subsequent encounter ==

== ENCOUNTER → 2023-05-23 | Outpatient (CLI) | payer MEDICARE | END | disposition home or self-care (01) | LOC: WOUNDCARE 02:55 | PROVIDERS: ATTEND Nurse Practitioner Family | DX: S30.821D Blister (nonthermal) of abdominal wall, subsequent encounter (principal); E11.622 Type 2 diabetes mellitus with other skin ulcer; L98.492 Non-pressure chronic ulcer of skin of other sites with fat layer exposed; K46.9 Unspecified abdominal hernia without obstruction or gangrene; E11.65 Type 2 diabetes mellitus with hyperglycemia; E11.22 Type 2 diabetes mellitus with diabetic chronic kidney disease; I13.0 Hypertensive heart and chronic kidney disease with heart failure and stage 1 through stage 4 chronic kidney disease, or unspecified chronic kidney disease; N18.4 Chronic kidney disease, stage 4 (severe); I50.9 Heart failure, unspecified; I25.2 Old myocardial infarction; J44.9 Chronic obstructive pulmonary disease, unspecified; N40.0 Benign prostatic hyperplasia without lower urinary tract symptoms; E66.01 Morbid (severe) obesity due to excess calories; F32.9 Major depressive disorder, single episode, unspecified; F17.210 Nicotine dependence, cigarettes, uncomplicated; Z90.5 Acquired absence of kidney; Z68.41 Body mass index [BMI] 40.0-44.9, adult; X58.XXXD Exposure to other specified factors, subsequent encounter ==

== ENCOUNTER → 2023-05-30 | Outpatient (CLI) | payer MEDICARE | END | disposition home or self-care (01) | LOC: WOUNDCARE 02:00 | PROVIDERS: ATTEND Nurse Practitioner Family | DX: S30.821D Blister (nonthermal) of abdominal wall, subsequent encounter (principal); E11.622 Type 2 diabetes mellitus with other skin ulcer; L98.492 Non-pressure chronic ulcer of skin of other sites with fat layer exposed; K46.9 Unspecified abdominal hernia without obstruction or gangrene; E66.01 Morbid (severe) obesity due to excess calories; E11.65 Type 2 diabetes mellitus with hyperglycemia; E11.22 Type 2 diabetes mellitus with diabetic chronic kidney disease; I13.0 Hypertensive heart and chronic kidney disease with heart failure and stage 1 through stage 4 chronic kidney disease, or unspecified chronic kidney disease; N18.4 Chronic kidney disease, stage 4 (severe); I50.9 Heart failure, unspecified; E78.5 Hyperlipidemia, unspecified; I25.2 Old myocardial infarction; J44.9 Chronic obstructive pulmonary disease, unspecified; N40.0 Benign prostatic hyperplasia without lower urinary tract symptoms; F41.9 Anxiety disorder, unspecified; F17.210 Nicotine dependence, cigarettes, uncomplicated; Z90.5 Acquired absence of kidney; Z68.41 Body mass index [BMI] 40.0-44.9, adult; Z79.4 Long term (current) use of insulin; Z79.82 Long term (current) use of aspirin; X58.XXXD Exposure to other specified factors, subsequent encounter ==

== ENCOUNTER → 2023-06-06 | Outpatient (CLI) | payer MEDICARE | END | disposition home or self-care (01) | LOC: WOUNDCARE 04:16 | PROVIDERS: ATTEND Nurse Practitioner Family | DX: S30.821D Blister (nonthermal) of abdominal wall, subsequent encounter (principal); E11.622 Type 2 diabetes mellitus with other skin ulcer; L98.492 Non-pressure chronic ulcer of skin of other sites with fat layer exposed; K46.9 Unspecified abdominal hernia without obstruction or gangrene; E11.65 Type 2 diabetes mellitus with hyperglycemia; E11.22 Type 2 diabetes mellitus with diabetic chronic kidney disease; I13.0 Hypertensive heart and chronic kidney disease with heart failure and stage 1 through stage 4 chronic kidney disease, or unspecified chronic kidney disease; N18.4 Chronic kidney disease, stage 4 (severe); I50.9 Heart failure, unspecified; E78.5 Hyperlipidemia, unspecified; I25.2 Old myocardial infarction; J44.9 Chronic obstructive pulmonary disease, unspecified; N40.0 Benign prostatic hyperplasia without lower urinary tract symptoms; E66.01 Morbid (severe) obesity due to excess calories; F32.9 Major depressive disorder, single episode, unspecified; F17.210 Nicotine dependence, cigarettes, uncomplicated; Z68.44 Body mass index [BMI] 60.0-69.9, adult; Z90.5 Acquired absence of kidney; Z79.4 Long term (current) use of insulin; Z79.82 Long term (current) use of aspirin; X58.XXXD Exposure to other specified factors, subsequent encounter ==

== ENCOUNTER → 2023-06-13 | Outpatient (CLI) | payer MEDICARE | END | disposition home or self-care (01) | LOC: WOUNDCARE 02:23 | PROVIDERS: ATTEND Nurse Practitioner Family | DX: S30.821D Blister (nonthermal) of abdominal wall, subsequent encounter (principal); E11.622 Type 2 diabetes mellitus with other skin ulcer; L98.492 Non-pressure chronic ulcer of skin of other sites with fat layer exposed; K46.9 Unspecified abdominal hernia without obstruction or gangrene; E11.65 Type 2 diabetes mellitus with hyperglycemia; E11.22 Type 2 diabetes mellitus with diabetic chronic kidney disease; I13.0 Hypertensive heart and chronic kidney disease with heart failure and stage 1 through stage 4 chronic kidney disease, or unspecified chronic kidney disease; N18.4 Chronic kidney disease, stage 4 (severe); I50.9 Heart failure, unspecified; E66.01 Morbid (severe) obesity due to excess calories; E78.5 Hyperlipidemia, unspecified; I25.2 Old myocardial infarction; J44.9 Chronic obstructive pulmonary disease, unspecified; N40.0 Benign prostatic hyperplasia without lower urinary tract symptoms; F32.9 Major depressive disorder, single episode, unspecified; F17.210 Nicotine dependence, cigarettes, uncomplicated; Z68.41 Body mass index [BMI] 40.0-44.9, adult; Z90.5 Acquired absence of kidney; Z79.4 Long term (current) use of insulin; Z79.82 Long term (current) use of aspirin; X58.XXXD Exposure to other specified factors, subsequent encounter ==

== ENCOUNTER → 2023-06-20 | Outpatient (CLI) | payer MEDICARE | END | disposition home or self-care (01) | LOC: WOUNDCARE 00:10 | PROVIDERS: ATTEND Nurse Practitioner Family | DX: S30.821D Blister (nonthermal) of abdominal wall, subsequent encounter (principal); E11.622 Type 2 diabetes mellitus with other skin ulcer; L98.492 Non-pressure chronic ulcer of skin of other sites with fat layer exposed; E11.65 Type 2 diabetes mellitus with hyperglycemia; K46.9 Unspecified abdominal hernia without obstruction or gangrene; E11.22 Type 2 diabetes mellitus with diabetic chronic kidney disease; I13.0 Hypertensive heart and chronic kidney disease with heart failure and stage 1 through stage 4 chronic kidney disease, or unspecified chronic kidney disease; N18.4 Chronic kidney disease, stage 4 (severe); I50.9 Heart failure, unspecified; E78.5 Hyperlipidemia, unspecified; I25.2 Old myocardial infarction; J44.9 Chronic obstructive pulmonary disease, unspecified; N40.0 Benign prostatic hyperplasia without lower urinary tract symptoms; E66.01 Morbid (severe) obesity due to excess calories; F32.9 Major depressive disorder, single episode, unspecified; F17.210 Nicotine dependence, cigarettes, uncomplicated; Z68.41 Body mass index [BMI] 40.0-44.9, adult; Z90.5 Acquired absence of kidney; Z79.4 Long term (current) use of insulin; Z79.82 Long term (current) use of aspirin; X58.XXXD Exposure to other specified factors, subsequent encounter ==

== ENCOUNTER → 2023-07-04 | Outpatient (CLI) | payer MEDICARE | END | disposition home or self-care (01) | LOC: WOUNDCARE 01:13 | PROVIDERS: ATTEND Nurse Practitioner Family | DX: S30.821D Blister (nonthermal) of abdominal wall, subsequent encounter (principal); S31.109D Unspecified open wound of abdominal wall, unspecified quadrant without penetration into peritoneal cavity, subsequent encounter; E11.622 Type 2 diabetes mellitus with other skin ulcer; L98.492 Non-pressure chronic ulcer of skin of other sites with fat layer exposed; I13.0 Hypertensive heart and chronic kidney disease with heart failure and stage 1 through stage 4 chronic kidney disease, or unspecified chronic kidney disease; E11.22 Type 2 diabetes mellitus with diabetic chronic kidney disease; E11.65 Type 2 diabetes mellitus with hyperglycemia; N18.9 Chronic kidney disease, unspecified; I50.9 Heart failure, unspecified; E66.01 Morbid (severe) obesity due to excess calories; E78.5 Hyperlipidemia, unspecified; F32.9 Major depressive disorder, single episode, unspecified; I25.2 Old myocardial infarction; J44.9 Chronic obstructive pulmonary disease, unspecified; K46.9 Unspecified abdominal hernia without obstruction or gangrene; N40.0 Benign prostatic hyperplasia without lower urinary tract symptoms; F17.210 Nicotine dependence, cigarettes, uncomplicated; Z79.4 Long term (current) use of insulin; Z79.82 Long term (current) use of aspirin; Z79.899 Other long term (current) drug therapy; Z90.5 Acquired absence of kidney; Z68.41 Body mass index [BMI] 40.0-44.9, adult; X58.XXXD Exposure to other specified factors, subsequent encounter ==

== ENCOUNTER → 2023-07-11 | Outpatient (CLI) | payer MEDICARE | END | disposition home or self-care (01) | LOC: WOUNDCARE 00:26 | PROVIDERS: ATTEND Nurse Practitioner Family | DX: S30.821D Blister (nonthermal) of abdominal wall, subsequent encounter (principal); L89.893 Pressure ulcer of other site, stage 3; S31.109D Unspecified open wound of abdominal wall, unspecified quadrant without penetration into peritoneal cavity, subsequent encounter; E11.622 Type 2 diabetes mellitus with other skin ulcer; L98.492 Non-pressure chronic ulcer of skin of other sites with fat layer exposed; I13.0 Hypertensive heart and chronic kidney disease with heart failure and stage 1 through stage 4 chronic kidney disease, or unspecified chronic kidney disease; E11.22 Type 2 diabetes mellitus with diabetic chronic kidney disease; E11.65 Type 2 diabetes mellitus with hyperglycemia; N18.9 Chronic kidney disease, unspecified; I50.9 Heart failure, unspecified; E66.01 Morbid (severe) obesity due to excess calories; E78.5 Hyperlipidemia, unspecified; F32.9 Major depressive disorder, single episode, unspecified; I25.2 Old myocardial infarction; J44.9 Chronic obstructive pulmonary disease, unspecified; K46.9 Unspecified abdominal hernia without obstruction or gangrene; N40.0 Benign prostatic hyperplasia without lower urinary tract symptoms; F17.210 Nicotine dependence, cigarettes, uncomplicated; Z79.4 Long term (current) use of insulin; Z79.82 Long term (current) use of aspirin; Z79.899 Other long term (current) drug therapy; Z90.5 Acquired absence of kidney; Z68.41 Body mass index [BMI] 40.0-44.9, adult; X58.XXXD Exposure to other specified factors, subsequent encounter ==

== ENCOUNTER → 2023-07-18 | Outpatient (CLI) | payer MEDICARE | END | disposition home or self-care (01) | LOC: WOUNDCARE 01:54 | PROVIDERS: ATTEND Nurse Practitioner Family | DX: S30.821D Blister (nonthermal) of abdominal wall, subsequent encounter (principal); L89.893 Pressure ulcer of other site, stage 3; S31.109D Unspecified open wound of abdominal wall, unspecified quadrant without penetration into peritoneal cavity, subsequent encounter; E11.622 Type 2 diabetes mellitus with other skin ulcer; L98.492 Non-pressure chronic ulcer of skin of other sites with fat layer exposed; E11.65 Type 2 diabetes mellitus with hyperglycemia; E66.01 Morbid (severe) obesity due to excess calories; K46.9 Unspecified abdominal hernia without obstruction or gangrene; E11.22 Type 2 diabetes mellitus with diabetic chronic kidney disease; I13.0 Hypertensive heart and chronic kidney disease with heart failure and stage 1 through stage 4 chronic kidney disease, or unspecified chronic kidney disease; N18.9 Chronic kidney disease, unspecified; I50.9 Heart failure, unspecified; E78.5 Hyperlipidemia, unspecified; I25.2 Old myocardial infarction; J44.9 Chronic obstructive pulmonary disease, unspecified; N40.0 Benign prostatic hyperplasia without lower urinary tract symptoms; F32.9 Major depressive disorder, single episode, unspecified; F17.210 Nicotine dependence, cigarettes, uncomplicated; Z79.4 Long term (current) use of insulin; Z79.82 Long term (current) use of aspirin; Z79.899 Other long term (current) drug therapy; Z90.5 Acquired absence of kidney; Z98.890 Other specified postprocedural states; Z68.41 Body mass index [BMI] 40.0-44.9, adult; X58.XXXD Exposure to other specified factors, subsequent encounter ==

== ENCOUNTER → 2023-07-25 | Outpatient (CLI) | payer MEDICARE | END | disposition home or self-care (01) | LOC: WOUNDCARE 00:30 | PROVIDERS: ATTEND Nurse Practitioner Family | DX: L89.893 Pressure ulcer of other site, stage 3 (principal); S30.821D Blister (nonthermal) of abdominal wall, subsequent encounter; S31.109D Unspecified open wound of abdominal wall, unspecified quadrant without penetration into peritoneal cavity, subsequent encounter; E11.622 Type 2 diabetes mellitus with other skin ulcer; L98.492 Non-pressure chronic ulcer of skin of other sites with fat layer exposed; E11.22 Type 2 diabetes mellitus with diabetic chronic kidney disease; E11.65 Type 2 diabetes mellitus with hyperglycemia; I13.0 Hypertensive heart and chronic kidney disease with heart failure and stage 1 through stage 4 chronic kidney disease, or unspecified chronic kidney disease; N18.9 Chronic kidney disease, unspecified; I50.9 Heart failure, unspecified; I25.2 Old myocardial infarction; E78.5 Hyperlipidemia, unspecified; K46.9 Unspecified abdominal hernia without obstruction or gangrene; J44.9 Chronic obstructive pulmonary disease, unspecified; N40.0 Benign prostatic hyperplasia without lower urinary tract symptoms; E66.01 Morbid (severe) obesity due to excess calories; F32.9 Major depressive disorder, single episode, unspecified; F17.210 Nicotine dependence, cigarettes, uncomplicated; Z68.41 Body mass index [BMI] 40.0-44.9, adult; Z90.5 Acquired absence of kidney; Z79.4 Long term (current) use of insulin; Z79.82 Long term (current) use of aspirin; Z79.899 Other long term (current) drug therapy; X58.XXXD Exposure to other specified factors, subsequent encounter ==

== ENCOUNTER → 2023-08-01 | Outpatient (CLI) | payer MEDICARE | END | disposition home or self-care (01) | LOC: WOUNDCARE 03:39 | PROVIDERS: ATTEND Nurse Practitioner Family | DX: S30.821D Blister (nonthermal) of abdominal wall, subsequent encounter (principal); L89.893 Pressure ulcer of other site, stage 3; S31.109D Unspecified open wound of abdominal wall, unspecified quadrant without penetration into peritoneal cavity, subsequent encounter; E11.622 Type 2 diabetes mellitus with other skin ulcer; L98.492 Non-pressure chronic ulcer of skin of other sites with fat layer exposed; E11.65 Type 2 diabetes mellitus with hyperglycemia; E11.22 Type 2 diabetes mellitus with diabetic chronic kidney disease; I13.0 Hypertensive heart and chronic kidney disease with heart failure and stage 1 through stage 4 chronic kidney disease, or unspecified chronic kidney disease; N18.9 Chronic kidney disease, unspecified; I50.9 Heart failure, unspecified; I25.2 Old myocardial infarction; E78.5 Hyperlipidemia, unspecified; J44.9 Chronic obstructive pulmonary disease, unspecified; N40.0 Benign prostatic hyperplasia without lower urinary tract symptoms; K46.9 Unspecified abdominal hernia without obstruction or gangrene; E66.01 Morbid (severe) obesity due to excess calories; F32.9 Major depressive disorder, single episode, unspecified; F17.210 Nicotine dependence, cigarettes, uncomplicated; Z68.41 Body mass index [BMI] 40.0-44.9, adult; Z90.5 Acquired absence of kidney; Z79.4 Long term (current) use of insulin; Z79.82 Long term (current) use of aspirin; Z79.899 Other long term (current) drug therapy; X58.XXXD Exposure to other specified factors, subsequent encounter ==

== ENCOUNTER → 2023-08-08 | Outpatient (CLI) | payer MEDICARE | END | disposition home or self-care (01) | LOC: WOUNDCARE 02:44 | PROVIDERS: ATTEND Nurse Practitioner Family | DX: S30.821D Blister (nonthermal) of abdominal wall, subsequent encounter (principal); L89.893 Pressure ulcer of other site, stage 3; S31.109D Unspecified open wound of abdominal wall, unspecified quadrant without penetration into peritoneal cavity, subsequent encounter; E11.622 Type 2 diabetes mellitus with other skin ulcer; L98.492 Non-pressure chronic ulcer of skin of other sites with fat layer exposed; E11.65 Type 2 diabetes mellitus with hyperglycemia; E11.22 Type 2 diabetes mellitus with diabetic chronic kidney disease; I13.0 Hypertensive heart and chronic kidney disease with heart failure and stage 1 through stage 4 chronic kidney disease, or unspecified chronic kidney disease; N18.9 Chronic kidney disease, unspecified; I50.9 Heart failure, unspecified; I25.2 Old myocardial infarction; E78.5 Hyperlipidemia, unspecified; J44.9 Chronic obstructive pulmonary disease, unspecified; N40.0 Benign prostatic hyperplasia without lower urinary tract symptoms; K46.9 Unspecified abdominal hernia without obstruction or gangrene; E66.01 Morbid (severe) obesity due to excess calories; F32.9 Major depressive disorder, single episode, unspecified; F17.210 Nicotine dependence, cigarettes, uncomplicated; Z68.41 Body mass index [BMI] 40.0-44.9, adult; Z90.5 Acquired absence of kidney; Z79.4 Long term (current) use of insulin; Z79.82 Long term (current) use of aspirin; Z79.899 Other long term (current) drug therapy; X58.XXXD Exposure to other specified factors, subsequent encounter ==

== ENCOUNTER → 2023-08-15 | Outpatient (CLI) | payer MEDICARE | END | disposition home or self-care (01) | LOC: WOUNDCARE 03:59 | PROVIDERS: ATTEND Nurse Practitioner Family | DX: S30.821D Blister (nonthermal) of abdominal wall, subsequent encounter (principal); L89.893 Pressure ulcer of other site, stage 3; S31.109D Unspecified open wound of abdominal wall, unspecified quadrant without penetration into peritoneal cavity, subsequent encounter; E11.622 Type 2 diabetes mellitus with other skin ulcer; L98.492 Non-pressure chronic ulcer of skin of other sites with fat layer exposed; E11.65 Type 2 diabetes mellitus with hyperglycemia; E11.22 Type 2 diabetes mellitus with diabetic chronic kidney disease; I13.0 Hypertensive heart and chronic kidney disease with heart failure and stage 1 through stage 4 chronic kidney disease, or unspecified chronic kidney disease; N18.9 Chronic kidney disease, unspecified; I50.9 Heart failure, unspecified; I25.2 Old myocardial infarction; E78.5 Hyperlipidemia, unspecified; J44.9 Chronic obstructive pulmonary disease, unspecified; N40.0 Benign prostatic hyperplasia without lower urinary tract symptoms; K46.9 Unspecified abdominal hernia without obstruction or gangrene; E66.01 Morbid (severe) obesity due to excess calories; F32.9 Major depressive disorder, single episode, unspecified; F17.210 Nicotine dependence, cigarettes, uncomplicated; Z68.41 Body mass index [BMI] 40.0-44.9, adult; Z90.5 Acquired absence of kidney; Z79.4 Long term (current) use of insulin; Z79.82 Long term (current) use of aspirin; Z79.899 Other long term (current) drug therapy; X58.XXXD Exposure to other specified factors, subsequent encounter ==

== ENCOUNTER → 2023-08-22 | Outpatient (CLI) | payer MEDICARE | END | disposition home or self-care (01) | LOC: WOUNDCARE 01:44 | PROVIDERS: ATTEND Nurse Practitioner Family | DX: S30.821D Blister (nonthermal) of abdominal wall, subsequent encounter (principal); L89.893 Pressure ulcer of other site, stage 3; S31.109D Unspecified open wound of abdominal wall, unspecified quadrant without penetration into peritoneal cavity, subsequent encounter; E11.622 Type 2 diabetes mellitus with other skin ulcer; L98.492 Non-pressure chronic ulcer of skin of other sites with fat layer exposed; E11.65 Type 2 diabetes mellitus with hyperglycemia; E11.22 Type 2 diabetes mellitus with diabetic chronic kidney disease; I13.0 Hypertensive heart and chronic kidney disease with heart failure and stage 1 through stage 4 chronic kidney disease, or unspecified chronic kidney disease; N18.9 Chronic kidney disease, unspecified; I50.9 Heart failure, unspecified; I25.2 Old myocardial infarction; E78.5 Hyperlipidemia, unspecified; J44.9 Chronic obstructive pulmonary disease, unspecified; N40.0 Benign prostatic hyperplasia without lower urinary tract symptoms; K46.9 Unspecified abdominal hernia without obstruction or gangrene; E66.01 Morbid (severe) obesity due to excess calories; F32.9 Major depressive disorder, single episode, unspecified; F17.210 Nicotine dependence, cigarettes, uncomplicated; Z68.41 Body mass index [BMI] 40.0-44.9, adult; Z90.5 Acquired absence of kidney; Z79.4 Long term (current) use of insulin; Z79.82 Long term (current) use of aspirin; Z79.899 Other long term (current) drug therapy; X58.XXXD Exposure to other specified factors, subsequent encounter ==

== ENCOUNTER → 2023-08-29 | Outpatient (CLI) | payer MEDICARE | END | disposition home or self-care (01) | LOC: WOUNDCARE 02:00 | PROVIDERS: ATTEND Nurse Practitioner Family | DX: S30.821D Blister (nonthermal) of abdominal wall, subsequent encounter (principal); L89.893 Pressure ulcer of other site, stage 3; S31.109D Unspecified open wound of abdominal wall, unspecified quadrant without penetration into peritoneal cavity, subsequent encounter; E11.622 Type 2 diabetes mellitus with other skin ulcer; L98.492 Non-pressure chronic ulcer of skin of other sites with fat layer exposed; E11.65 Type 2 diabetes mellitus with hyperglycemia; E11.22 Type 2 diabetes mellitus with diabetic chronic kidney disease; I13.0 Hypertensive heart and chronic kidney disease with heart failure and stage 1 through stage 4 chronic kidney disease, or unspecified chronic kidney disease; N18.9 Chronic kidney disease, unspecified; I50.9 Heart failure, unspecified; I25.2 Old myocardial infarction; E78.5 Hyperlipidemia, unspecified; J44.9 Chronic obstructive pulmonary disease, unspecified; N40.0 Benign prostatic hyperplasia without lower urinary tract symptoms; K46.9 Unspecified abdominal hernia without obstruction or gangrene; E66.01 Morbid (severe) obesity due to excess calories; F32.9 Major depressive disorder, single episode, unspecified; F17.210 Nicotine dependence, cigarettes, uncomplicated; Z68.41 Body mass index [BMI] 40.0-44.9, adult; Z90.5 Acquired absence of kidney; Z79.4 Long term (current) use of insulin; Z79.82 Long term (current) use of aspirin; Z79.899 Other long term (current) drug therapy; X58.XXXD Exposure to other specified factors, subsequent encounter ==

== ENCOUNTER → 2023-09-13 | Outpatient (CLI) | payer MEDICARE | END | disposition home or self-care (01) | LOC: WOUNDCARE 00:56 | PROVIDERS: ATTEND Nurse Practitioner Family | DX: S30.821D Blister (nonthermal) of abdominal wall, subsequent encounter (principal); L89.893 Pressure ulcer of other site, stage 3; S31.109D Unspecified open wound of abdominal wall, unspecified quadrant without penetration into peritoneal cavity, subsequent encounter; E11.622 Type 2 diabetes mellitus with other skin ulcer; L98.492 Non-pressure chronic ulcer of skin of other sites with fat layer exposed; E11.65 Type 2 diabetes mellitus with hyperglycemia; E11.22 Type 2 diabetes mellitus with diabetic chronic kidney disease; I13.0 Hypertensive heart and chronic kidney disease with heart failure and stage 1 through stage 4 chronic kidney disease, or unspecified chronic kidney disease; N18.9 Chronic kidney disease, unspecified; I50.9 Heart failure, unspecified; I25.2 Old myocardial infarction; E78.5 Hyperlipidemia, unspecified; J44.9 Chronic obstructive pulmonary disease, unspecified; N40.0 Benign prostatic hyperplasia without lower urinary tract symptoms; K46.9 Unspecified abdominal hernia without obstruction or gangrene; E66.01 Morbid (severe) obesity due to excess calories; F32.9 Major depressive disorder, single episode, unspecified; F17.210 Nicotine dependence, cigarettes, uncomplicated; Z68.41 Body mass index [BMI] 40.0-44.9, adult; Z90.5 Acquired absence of kidney; Z79.4 Long term (current) use of insulin; Z79.82 Long term (current) use of aspirin; Z79.899 Other long term (current) drug therapy; X58.XXXD Exposure to other specified factors, subsequent encounter ==

== ENCOUNTER → 2023-09-19 | Outpatient (CLI) | payer MEDICARE | END | disposition home or self-care (01) | LOC: WOUNDCARE 00:32 | PROVIDERS: ATTEND Nurse Practitioner Primary Care | DX: S30.821D Blister (nonthermal) of abdominal wall, subsequent encounter (principal); L89.893 Pressure ulcer of other site, stage 3; S31.109D Unspecified open wound of abdominal wall, unspecified quadrant without penetration into peritoneal cavity, subsequent encounter; E11.622 Type 2 diabetes mellitus with other skin ulcer; L98.492 Non-pressure chronic ulcer of skin of other sites with fat layer exposed; E11.65 Type 2 diabetes mellitus with hyperglycemia; E11.22 Type 2 diabetes mellitus with diabetic chronic kidney disease; I13.0 Hypertensive heart and chronic kidney disease with heart failure and stage 1 through stage 4 chronic kidney disease, or unspecified chronic kidney disease; N18.9 Chronic kidney disease, unspecified; I50.9 Heart failure, unspecified; I25.2 Old myocardial infarction; E78.5 Hyperlipidemia, unspecified; J44.9 Chronic obstructive pulmonary disease, unspecified; N40.0 Benign prostatic hyperplasia without lower urinary tract symptoms; K46.9 Unspecified abdominal hernia without obstruction or gangrene; E66.01 Morbid (severe) obesity due to excess calories; F32.9 Major depressive disorder, single episode, unspecified; F17.210 Nicotine dependence, cigarettes, uncomplicated; Z68.41 Body mass index [BMI] 40.0-44.9, adult; Z90.5 Acquired absence of kidney; Z79.4 Long term (current) use of insulin; Z79.82 Long term (current) use of aspirin; Z79.899 Other long term (current) drug therapy; X58.XXXD Exposure to other specified factors, subsequent encounter ==

== ENCOUNTER → 2023-09-26 | Outpatient (CLI) | payer MEDICARE | END | disposition home or self-care (01) | LOC: WOUNDCARE 00:39 | PROVIDERS: ATTEND Nurse Practitioner Family | DX: S30.821D Blister (nonthermal) of abdominal wall, subsequent encounter (principal); L89.893 Pressure ulcer of other site, stage 3; S31.109D Unspecified open wound of abdominal wall, unspecified quadrant without penetration into peritoneal cavity, subsequent encounter; E11.622 Type 2 diabetes mellitus with other skin ulcer; L98.492 Non-pressure chronic ulcer of skin of other sites with fat layer exposed; E11.65 Type 2 diabetes mellitus with hyperglycemia; E11.22 Type 2 diabetes mellitus with diabetic chronic kidney disease; I13.0 Hypertensive heart and chronic kidney disease with heart failure and stage 1 through stage 4 chronic kidney disease, or unspecified chronic kidney disease; N18.9 Chronic kidney disease, unspecified; I50.9 Heart failure, unspecified; I25.2 Old myocardial infarction; E78.5 Hyperlipidemia, unspecified; J44.9 Chronic obstructive pulmonary disease, unspecified; N40.0 Benign prostatic hyperplasia without lower urinary tract symptoms; K46.9 Unspecified abdominal hernia without obstruction or gangrene; E66.01 Morbid (severe) obesity due to excess calories; F32.9 Major depressive disorder, single episode, unspecified; F17.210 Nicotine dependence, cigarettes, uncomplicated; Z68.41 Body mass index [BMI] 40.0-44.9, adult; Z90.5 Acquired absence of kidney; Z79.4 Long term (current) use of insulin; Z79.82 Long term (current) use of aspirin; Z79.899 Other long term (current) drug therapy; X58.XXXD Exposure to other specified factors, subsequent encounter ==

== ENCOUNTER → 2023-10-03 | Outpatient (CLI) | payer MEDICARE | END | disposition home or self-care (01) | LOC: WOUNDCARE 01:21 | PROVIDERS: ATTEND Nurse Practitioner Family | DX: S30.821D Blister (nonthermal) of abdominal wall, subsequent encounter (principal); L89.893 Pressure ulcer of other site, stage 3; S31.109D Unspecified open wound of abdominal wall, unspecified quadrant without penetration into peritoneal cavity, subsequent encounter; E11.622 Type 2 diabetes mellitus with other skin ulcer; L98.492 Non-pressure chronic ulcer of skin of other sites with fat layer exposed; E11.65 Type 2 diabetes mellitus with hyperglycemia; E11.22 Type 2 diabetes mellitus with diabetic chronic kidney disease; I13.0 Hypertensive heart and chronic kidney disease with heart failure and stage 1 through stage 4 chronic kidney disease, or unspecified chronic kidney disease; N18.9 Chronic kidney disease, unspecified; I50.9 Heart failure, unspecified; I25.2 Old myocardial infarction; E78.5 Hyperlipidemia, unspecified; J44.9 Chronic obstructive pulmonary disease, unspecified; N40.0 Benign prostatic hyperplasia without lower urinary tract symptoms; K46.9 Unspecified abdominal hernia without obstruction or gangrene; E66.01 Morbid (severe) obesity due to excess calories; F32.9 Major depressive disorder, single episode, unspecified; F17.210 Nicotine dependence, cigarettes, uncomplicated; Z68.41 Body mass index [BMI] 40.0-44.9, adult; Z90.5 Acquired absence of kidney; Z79.4 Long term (current) use of insulin; Z79.82 Long term (current) use of aspirin; Z79.899 Other long term (current) drug therapy; X58.XXXD Exposure to other specified factors, subsequent encounter ==

== ENCOUNTER → 2023-10-10 | Outpatient (CLI) | payer MEDICARE | END | disposition home or self-care (01) | LOC: WOUNDCARE 01:47 | PROVIDERS: ATTEND Nurse Practitioner Family | DX: E11.622 Type 2 diabetes mellitus with other skin ulcer (principal); L98.492 Non-pressure chronic ulcer of skin of other sites with fat layer exposed; S31.109D Unspecified open wound of abdominal wall, unspecified quadrant without penetration into peritoneal cavity, subsequent encounter; K46.9 Unspecified abdominal hernia without obstruction or gangrene; I25.2 Old myocardial infarction; E11.65 Type 2 diabetes mellitus with hyperglycemia; E11.22 Type 2 diabetes mellitus with diabetic chronic kidney disease; I13.0 Hypertensive heart and chronic kidney disease with heart failure and stage 1 through stage 4 chronic kidney disease, or unspecified chronic kidney disease; I50.9 Heart failure, unspecified; N18.4 Chronic kidney disease, stage 4 (severe); N40.0 Benign prostatic hyperplasia without lower urinary tract symptoms; J44.9 Chronic obstructive pulmonary disease, unspecified; E78.5 Hyperlipidemia, unspecified; E66.01 Morbid (severe) obesity due to excess calories; F32.9 Major depressive disorder, single episode, unspecified; F17.210 Nicotine dependence, cigarettes, uncomplicated; Z68.41 Body mass index [BMI] 40.0-44.9, adult; Z90.5 Acquired absence of kidney; Z79.82 Long term (current) use of aspirin; Z79.4 Long term (current) use of insulin; X58.XXXD Exposure to other specified factors, subsequent encounter ==

== ENCOUNTER → 2023-10-26 | Outpatient (CLI) | payer MEDICARE ==
[2023-10-26 10:13] LABS: BASO # 0.1 10*3/uL (0.0-0.1); BASO % 0.5 % (0.0-1.0); EOS # 0.2 10*3/uL (0.0-0.4); EOS % 1.5 % (1.0-4.0); HEMATOCRIT 48.6 % (42.0-52.0); LYMPH % 28.9 % (27.0-41.0); MEAN CELL VOLUME 78.4 fl (80.0-94.0); MEAN CORPUSCULAR HGB 25.8 pg (27.0-31.0); MEAN CORPUSCULAR HGB CONC 32.9 g/dl (33.0-37.0); MONO # 0.7 10*3/uL (0.1-1.0); MONO % 6.4 % (3.0-9.0); NEUT # 6.6 10*3/uL (2.3-7.9); NEUT % 62.4 % (47.0-73.0); PLATELET COUNT AUTOMATED 248 10*3/uL (130-400); RED CELL DISTRI WIDTH 15.7 % (0-14.5); WHITE BLOOD COUNT 10.5 10*3/uL (4.8-10.8)
[2023-10-26 10:23] LABS: URINE CREATININE RANDOM 135.17 mg/dL
[2023-10-26 10:52] LABS: ALKALINE PHOSPHATASE 117 U/L (46-116); BUN 15 mg/dl (9-23); CHLORIDE 105 mmol/L (98-107); CHOLESTEROL 120 mg/dL (<200); LDL CHOLESTEROL 53 mg/dL (9-159); POTASSIUM 3.8 mmol/L (3.4-5.1); SGPT/ALT 17 U/L (5-49); TOTAL PROTEIN 7.2 gm/dL (6.0-8.0); TRIGLYCERIDES 171 mg/dl (<150)
== END ==
LOC: LAB 09:18
PROVIDERS: ATTEND Internal Medicine
DX: I50.22 Chronic systolic (congestive) heart failure (principal); E11.21 Type 2 diabetes mellitus with diabetic nephropathy; J44.9 Chronic obstructive pulmonary disease, unspecified

== ENCOUNTER → 2024-01-24 | Outpatient (CLI) | payer MEDICARE | END | disposition home or self-care (01) | LOC: LAB 08:35 | PROVIDERS: ATTEND Internal Medicine | DX: E11.21 Type 2 diabetes mellitus with diabetic nephropathy (principal) ==